=== PATIENT | female | born 1950 | race Caucasian/White ===

== ENCOUNTER 2016-05-25 11:53 | Emergency (ER) | payer MEDICARE, MEDICAID ==
[~2016-05-25] VITALS: Ht 162.6 cm; Wt 72.6 kg
[~2016-05-25 11:53] MED LIST: ACET500C4 PO; BENZ1TAB7 PO; CALC-223 PO; CHOL10002 PO; DIVA500T7 PO; DOCU-25 PO; FLUO-120 PO; LEVO75TA7 PO; QUET200T PO; REPA0.5T4 PO; RISP1TAB27 PO; RISP4TAB4 PO; TRAZ-144 PO
--- NOTE | 2016-05-25 12:35 | NUR ---
Dr juárez at bedside for exam.
--- NOTE | 2016-05-25 13:40 | NUR ---
Patient discharged to home in stable conditon. Written and verbal after care instructions given. Patient verbalizes understanding of instructions.
[2016-05-25 13:41] VITALS: BP 110/69
== END 2016-05-25 13:47 | disposition home or self-care (01) ==
LOC: ER 11:55
DX: S09.90XA Unspecified injury of head, initial encounter (principal); J45.909 Unspecified asthma, uncomplicated; F20.9 Schizophrenia, unspecified; E03.9 Hypothyroidism, unspecified; Z88.8 Allergy status to other drugs, medicaments and biological substances; R40.4 Transient alteration of awareness; W18.30XA Fall on same level, unspecified, initial encounter; Y93.89 Activity, other specified; Y99.8 Other external cause status; Y92.89 Other specified places as the place of occurrence of the external cause
CPT/HCPCS: 70450; 71010; 72125; A4663

== ENCOUNTER 2017-04-15 12:13 | Emergency (ER) | payer MEDICARE, MEDICAID ==
[~2017-04-15] VITALS: Ht 162.6 cm; Wt 77.1 kg
[~2017-04-15 12:13] MED LIST changes: +DOCU-141 PO; -DOCU-25 PO
[2017-04-15] MEDS ORDERED: ACETAMINOPHEN ES 500 MG TABLET PO ONE (14:00)
[2017-04-15] MEDS ORDERED: ACETAMINOPHEN ES 500 MG TABLET ONE (14:18)
[2017-04-15] MEDS ORDERED: ASPIRIN EC 325 MG TABLET.DR PO ONE (14:23)
[2017-04-15] MEDS ORDERED: ASPIRIN 325 MG TABLET PO ONE (14:30)
[2017-04-15 14:41] LABS: BASOPHILS % (AUTO) 0.8 % (0.0-2.0); EOSINOPHILS # (AUTO) 0.2 K/uL (0.0-0.7); EOSINOPHILS % (AUTO) 3.5 % (0.0-7.0); HEMATOCRIT 35.9 % (31.2-41.9); HEMOGLOBIN 11.9 g/dL (10.9-14.3); LYMPHOCYTES # (AUTO) 1.7 K/uL (20.0-40.0); LYMPHOCYTES % (AUTO) 33.8 % (20.5-51.5); MEAN CORPUSCULAR HEMOGLOBIN 29.2 uug (24.7-32.8); MEAN CORPUSCULAR HGB CONC 33 g/dL (32.3-35.6); MEAN CORPUSCULAR VOLUME 88.2 fL (75.5-95.3); MONOCYTES # (AUTO) 0.5 K/uL (2.0-10.0); MONOCYTES % (AUTO) 10.2 % (0.0-11.0); NEUTROPHILS # (AUTO) 2.7 K/uL (1.8-8.9); NEUTROPHILS % (AUTO) 51.7 % (38.5-71.5); PLATELET COUNT (AUTO) 199 K/uL (179-408); RED BLOOD CELL COUNT(AUTO) 4.07 MIL/uL (3.63-4.92); WHITE BLOOD COUNT (AUTO) 5.1 K/uL (3.8-11.8)
[2017-04-15 14:58] LABS: CREATININE 1.2 mg/dL (0.6-1.3); POTASSIUM 4.3 mmol/L (3.5-5.1)
[2017-04-15 15:12] LABS: BILIRUBIN,DIRECT 0.1 mg/dL (0.0-0.2); BILIRUBIN,TOTAL 0.3 mg/dL (0.2-1.0); TOTAL PROTEIN, SERUM 7.2 g/dL (6.4-8.2)
[2017-07-24] MEDS ORDERED: QUET100T PO (12:26)
[2017-07-24] MEDS ORDERED: FLUO20CA36 PO (12:26)
[2017-07-24] MEDS ORDERED: QUET300T2 PO (12:26)
[2017-07-24] MEDS ORDERED: LIDO40SO TP (12:26)
[2017-07-24] MEDS ORDERED: RISP3TAB5 PO (12:26)
[2017-07-24] MEDS ORDERED: DIVA500T2 PO (12:26)
[2017-07-24] MEDS ORDERED: RISP1TAB7 PO (12:26)
[2017-07-24] MEDS ORDERED: DIVA250T4 PO (12:26)
[2017-07-25] MEDS ORDERED: Levothyroxine Sodium PO (15:55)
[2017-07-25] MEDS ORDERED: GLIP5TAB13 PO (15:55)
[2017-07-25] MEDS ORDERED: Blood Sugar Diagnostic VI (15:55)
[2017-07-25] MEDS ORDERED: AMLO5TAB2 PO (15:55)
[2017-07-25] MEDS ORDERED: ACET325T53 PO (15:55)
[2017-07-25] MEDS ORDERED: ATOR20TA PO (15:55)
[2017-07-25] MEDS ORDERED: DOCU100C36 PO (15:55)
[2017-07-25] MEDS ORDERED: BISA10SU12 RC (16:13)
[2017-07-25] MEDS ORDERED: FLUO-120 PO (16:13)
== END 2017-04-15 16:20 | disposition home or self-care (01) ==
LOC: ER 12:13
DX: M79.602 Pain in left arm (principal); J45.909 Unspecified asthma, uncomplicated; E11.9 Type 2 diabetes mellitus without complications; E03.9 Hypothyroidism, unspecified; Z88.8 Allergy status to other drugs, medicaments and biological substances; Z79.891 Long term (current) use of opiate analgesic; Z79.899 Other long term (current) drug therapy
CPT/HCPCS: 36415; 71045; 80048; 80076; 83880; 84484; 85025; 85730; 93005; 99285; A4663; A9150; 70030-TC

== ENCOUNTER 2017-09-21 19:11 | Emergency (ER) | payer MEDICAID, MEDICARE ==
[~2017-09-21] VITALS: Ht 157.5 cm; Wt 68.9 kg
[~2017-09-21 19:11] MED LIST changes: +ACET325T53 PO; -ACET500C4 PO; +AMLO5TAB2 PO; +ATOR20TA PO; +Blood Sugar Diagnostic VI; -CALC-223 PO; +DIVA250T4 PO; +DIVA500T2 PO; -DIVA500T7 PO; -DOCU-141 PO; +DOCU100C36 PO; +GLIP5TAB13 PO; -LEVO75TA7 PO; +Levothyroxine Sodium PO; +QUET100T PO; -QUET200T PO; +QUET300T2 PO; -REPA0.5T4 PO; -RISP1TAB27 PO; +RISP3TAB5 PO; -RISP4TAB4 PO; -TRAZ-144 PO
--- NOTE | 2017-09-21 19:24 | NUR ---
Dr. Hunter at bedside for MSE.
[2017-09-21] MEDS ORDERED: TRAMADOL HCL 50 MG TABLET PO ONE (19:30)
[2017-09-21] MEDS ORDERED: TRAMADOL HCL 50 MG TABLET ONE (19:37)
--- NOTE | 2017-09-21 20:30 | NUR ---
Patient discharged to home in stable conditon. Written and verbal after care instructions given. Patient verbalizes understanding of instructions. Pt ambulated out of ER with walker, accompanied by caregiver, VSS, no acute signs of distress, all belongings taken.
[2017-09-21 21:39] VITALS: BP 149/96
== END 2017-09-21 20:30 | disposition home or self-care (01) ==
LOC: ER 19:14
DX: M25.551 Pain in right hip (principal); J45.909 Unspecified asthma, uncomplicated; E03.9 Hypothyroidism, unspecified; E78.5 Hyperlipidemia, unspecified; E11.9 Type 2 diabetes mellitus without complications; I10 Essential (primary) hypertension; Z88.8 Allergy status to other drugs, medicaments and biological substances
CPT/HCPCS: 73502; A4663

== ENCOUNTER 2017-11-15 16:15 | Emergency (ER) | payer MEDICARE, MEDICAID ==
[~2017-11-15] VITALS: Ht 157.5 cm; Wt 70.3 kg
[~2017-11-15 16:15] MED LIST changes: -AMLO5TAB2 PO; +AMLO5TAB7 PO
[2017-11-15 16:43] LABS: BASOPHILS # (AUTO) 0.1 K/uL (0.0-8.0); BASOPHILS % (AUTO) 0.7 % (0.0-2.0); EOSINOPHILS # (AUTO) 0.2 K/uL (0.0-0.7); EOSINOPHILS % (AUTO) 2.3 % (0.0-7.0); HEMATOCRIT 38.6 % (31.2-41.9); HEMOGLOBIN 12.9 g/dL (10.9-14.3); LYMPHOCYTES # (AUTO) 1.8 K/uL (20.0-40.0); LYMPHOCYTES % (AUTO) 22.9 % (20.5-51.5); MEAN CORPUSCULAR HEMOGLOBIN 29.9 uug (24.7-32.8); MEAN CORPUSCULAR HGB CONC 34 g/dL (32.3-35.6); MEAN CORPUSCULAR VOLUME 89.1 fL (75.5-95.3); MONOCYTES # (AUTO) 0.8 K/uL (2.0-10.0); MONOCYTES % (AUTO) 10.5 % (0.0-11.0); NEUTROPHILS # (AUTO) 4.9 K/uL (1.8-8.9); NEUTROPHILS % (AUTO) 63.6 % (38.5-71.5); PLATELET COUNT (AUTO) 192 K/uL (179-408); RED BLOOD CELL COUNT(AUTO) 4.33 MIL/uL (3.63-4.92); WHITE BLOOD COUNT (AUTO) 7.7 K/uL (3.8-11.8)
[2017-11-15 17:00] LABS: POTASSIUM 4.1 mmol/L (3.5-5.1)
[2017-11-15 17:08] LABS: BILIRUBIN,DIRECT 0.1 mg/dL (0.0-0.2); BILIRUBIN,TOTAL 0.4 mg/dL (0.2-1.0); TOTAL PROTEIN, SERUM 7.7 g/dL (6.4-8.2)
[2017-11-15] MEDS ORDERED: RISP1TAB7 PO (17:14)
[2017-11-15] MEDS ORDERED: DIVA500T2 PO (17:14)
[2017-11-15] MEDS ORDERED: RISP3TAB5 PO (17:14)
[2017-11-15] MEDS ORDERED: MIRA50TA PO (17:14)
[2017-11-15] MEDS ORDERED: BENZ1TAB7 PO (17:14)
[2017-11-15] MEDS ORDERED: LEVO75TA7 PO (17:14)
[2017-11-15] MEDS ORDERED: DIVA250T4 PO (17:14)
[2017-11-15] MEDS ORDERED: FLUO20CA36 PO (17:14)
[2017-11-15] MEDS ORDERED: CELE200C PO (17:14)
[2017-11-15] MEDS ORDERED: DOCU100C36 PO (17:14)
[2017-11-15] MEDS ORDERED: ACET-2605 PO (17:14)
[2017-11-15] MEDS ORDERED: QUET300T2 PO (17:14)
[2017-11-15] MEDS ORDERED: CHOL10005 PO (17:14)
[2017-11-15] MEDS ORDERED: REPA1TAB PO (17:14)
[2017-11-15] MEDS ORDERED: QUET100T PO (17:14)
[2017-11-15] MEDS ORDERED: SWABABLE VALVE TRANSFER SET EA MC ONE (17:47)
[2017-11-15] MEDS ORDERED: NORMAL SALINE FLUSH 10 ML DISP.SYRIN ONE (17:47)
[2017-11-15] MEDS ORDERED: IV NORMAL SALINE 250 ML IV ONE (17:48)
[2017-11-15] MEDS ORDERED: IOHEXOL 350 100 ML INFUS..BTL ONE (17:48)
--- NOTE | 2017-11-15 18:35 | NUR ---
all md orders completed, presently pt at ct scan.
--- NOTE | 2017-11-15 19:54 | NUR ---
Patient discharged to home in stable conditon. Written and verbal after care instructions given. Patient verbalizes understanding of instructions. Pt ambulated out of ER with steady gait, no acute signs of distress, VSS, all belongings taken IV site discontinued.
[2017-11-15 19:56] VITALS: BP 152/105
== END 2017-11-15 19:58 | disposition home or self-care (01) ==
LOC: ER 16:16
DX: R09.1 Pleurisy (principal); J45.909 Unspecified asthma, uncomplicated; E78.5 Hyperlipidemia, unspecified; E03.9 Hypothyroidism, unspecified; Z88.8 Allergy status to other drugs, medicaments and biological substances
CPT/HCPCS: 36415; 70030-TC; 71045; 71275; 85025; 85730; 93005; A4663; J3490; J7050; Q9967

== ENCOUNTER 2018-06-08 19:30 | Inpatient (IN) | payer MEDICARE, OTHER ==
[~2018-06-08] VITALS: Ht 157.5 cm; Wt 80.7 kg
[~2018-06-08 19:30] MED LIST changes: +ACET-2605 PO; -ACET325T53 PO; -AMLO5TAB7 PO; -ATOR20TA PO; -Blood Sugar Diagnostic VI; +CELE200C PO; -CHOL10002 PO; +CHOL10005 PO; -FLUO-120 PO; +FLUO20CA36 PO; -GLIP5TAB13 PO; +LEVO75TA7 PO; -Levothyroxine Sodium PO; +MIRA50TA PO; +REPA1TAB PO; +RISP1TAB7 PO
--- NOTE | 2018-06-08 19:53 | NUR ---
Dr. Carpenter at bedside for MSE.
--- NOTE | 2018-06-08 20:06 | NUR ---
Pt out of ER for CT.
[2018-06-08 20:11] LABS: BASOPHILS % (AUTO) 0.3 % (0.0-2.0); EOSINOPHILS % (AUTO) 0.7 % (0.0-7.0); HEMATOCRIT 33.4 % (31.2-41.9); HEMOGLOBIN 11.4 g/dL (10.9-14.3); LYMPHOCYTES # (AUTO) 0.8 K/uL (20.0-40.0); LYMPHOCYTES % (AUTO) 13.9 % (20.5-51.5); MEAN CORPUSCULAR HEMOGLOBIN 29.6 uug (24.7-32.8); MEAN CORPUSCULAR HGB CONC 34 g/dL (32.3-35.6); MEAN CORPUSCULAR VOLUME 87.1 fL (75.5-95.3); MONOCYTES # (AUTO) 0.9 K/uL (2.0-10.0); MONOCYTES % (AUTO) 14.2 % (0.0-11.0); NEUTROPHILS # (AUTO) 4.3 K/uL (1.8-8.9); NEUTROPHILS % (AUTO) 70.9 % (38.5-71.5); PLATELET COUNT (AUTO) 149 K/uL (179-408); RED BLOOD CELL COUNT(AUTO) 3.84 MIL/uL (3.63-4.92)
[2018-06-08 20:19] LABS: CREATININE 1.3 mg/dL (0.6-1.3); POTASSIUM 3.9 mmol/L (3.5-5.1)
--- NOTE | 2018-06-08 20:21 | NUR ---
Pt back to ER from CT.
[2018-06-08 20:25] LABS: BILIRUBIN,DIRECT 0.1 mg/dL (0.0-0.2); BILIRUBIN,TOTAL 0.3 mg/dL (0.2-1.0); TOTAL PROTEIN, SERUM 6.9 g/dL (6.4-8.2)
--- NOTE | 2018-06-08 21:23 | NUR ---
Called [facility] to page Dr. Torres Wallace.
[2018-06-08] MEDS ORDERED: LEVOFLOXACIN 750 MG/D5W 150 ML PIGGYBACK IV ONE (21:30)
[2018-06-08] MEDS ORDERED: LEVOFLOXACIN 750MG/D5W 150 ML IV ONE (21:43)
--- NOTE | 2018-06-08 21:53 | NUR ---
Dr. Carpenter on panel call with Dr. Torres Wallace. Pt accepted [facility], diagnosis: pneumonia.
[2018-06-08] MEDS ORDERED: MELO15TA13 PO (22:11)
[2018-06-08] MEDS ORDERED: D-ME118S12 PO (22:11)
--- NOTE | 2018-06-08 22:28 | NUR ---
Report given to Rikki STONE Medsurg.
--- NOTE | 2018-06-08 22:40 | NUR ---
RECEIVED PATIENT AT THIS TIME FROM ED. STABLE CONDITION. NO SIGNS OF DISTRESS. VITAL SIGNS TAKEN. PATIENT A/Ox2. o2 saturation 93-94% - placed on O2 2L NC. PICTURES TAKEN OF LEFT/RIGHT BUNION REDNESS. ID-BAND PLACED. IV-ACCESS PATENT, FLUSHES WELL. CONSISTENT COUGH PRESENT WITH NON-PRODUCTION. BED REST AT THIS TIME DUE TO UNSTEADY GAIT AND WEAKNESS. SAFETY MEASURES IMPLEMENTED. WILL CONTINUE TO MONITOR THROUGHOUT SHIFT.
[2018-06-08] MEDS: risperiDONE 2 MG TABLET PO SCH (23:00)
[2018-06-08] MEDS ORDERED: MIRALAX 17 GM POWD.PACK PO PRN (23:15)
[2018-06-08] MEDS ORDERED: CEFTRIAXONE 1 G in IV DEXTROSE 5% 50 ML IV SCH (23:15)
[2018-06-08] MEDS ORDERED: ACETAMINOPHEN 325 MG TABLET PO PRN (23:15)
[2018-06-08] MEDS ORDERED: DEXTROSE 50% 50 ML DISP.SYRIN IV PRN (23:15)
[2018-06-08] MEDS ORDERED: MORPHINE SULFATE 2 MG/1 ML DISP.SYRIN IV PRN (23:15)
[2018-06-08 23:16] VITALS: BP 148/65
[2018-06-08] MEDS: QUETIAPINE FUMARATE 100 MG TABLET PO SCH (23:45)
[2018-06-08] MEDS ORDERED: AZITHROMYCIN IV 250 MG in IV DEXTROSE 5% 250 ML IV ONE (23:45)
[2018-06-09] MEDS: GUAIFENESIN/CODEINE 5 ML LIQUID UDC PO PRN ×3 (00:07→15:37)
[2018-06-09] MEDS ORDERED: CEFTRIAXONE 1 G VIAL ONE (00:15)
[2018-06-09] MEDS ORDERED: AZITHROMYCIN 500 MG VIAL IV ONE (00:16)
--- NOTE | 2018-06-09 02:00 | NUR ---
HAND-OFF REPORT GIVEN TO BERTHA SEAY.
--- NOTE | 2018-06-09 03:36 | NUR ---
CLARIFIED ZITHROMAX ORDER BECAUSE PHARMACY NOTED "X1 ENTERED FOR NOW, CLARIFY QT PROLONGATION RISK- PT ON SEVERAL QT PROLONGING MEDS- LAST QTC= 483" SPOKE TO ON-CALL DR. SO AND RELAYED MESSAGED. SAID TO GIVEN THE DOSE AND DO EKG IN THE MORNING. WILL CONTINUE TO MONITOR.
--- NOTE | 2018-06-09 06:15 | NUR ---
PATIENT SLEPT WELL THROUGHOUT SHIFT. NOTED WITH NON-PRODUCTIVE COUGHING. PATIENT ABLE TO MAKE NEEDS KNOWN. NO SIGNS OF ACUTE DISTRESS. NO COMPLAINTS OF PAIN. PATIENT ON 2L NC. ALL MEDICATIONS GIVEN ORDERED. SAFETY MEASURES GIVEN.
[2018-06-09] MEDS: LEVOTHYROXINE SODIUM 75 MCG TABLET PO SCH (06:37)
[2018-06-09] MEDS: PANTOPRAZOLE SODIUM 40 MG TABLET.DR PO SCH (06:37)
[2018-06-09 06:39] VITALS: BP 109/62
[2018-06-09] MEDS: BLOOD SUGAR DIAGNOSTIC 1 EACH STRIP VI SCH ×4 (06:42→20:57)
[2018-06-09 06:51] LABS: BASOPHILS % (AUTO) 0.2 % (0.0-2.0); EOSINOPHILS % (AUTO) 0.3 % (0.0-7.0); HEMATOCRIT 32.4 % (31.2-41.9); LYMPHOCYTES # (AUTO) 1.2 K/uL (20.0-40.0); LYMPHOCYTES % (AUTO) 15.7 % (20.5-51.5); MEAN CORPUSCULAR HEMOGLOBIN 29.4 uug (24.7-32.8); MEAN CORPUSCULAR HGB CONC 34 g/dL (32.3-35.6); MEAN CORPUSCULAR VOLUME 86.5 fL (75.5-95.3); MONOCYTES # (AUTO) 1.4 K/uL (2.0-10.0); MONOCYTES % (AUTO) 18.7 % (0.0-11.0); NEUTROPHILS # (AUTO) 4.9 K/uL (1.8-8.9); NEUTROPHILS % (AUTO) 65.1 % (38.5-71.5); PLATELET COUNT (AUTO) 147 K/uL (179-408); RED BLOOD CELL COUNT(AUTO) 3.74 MIL/uL (3.63-4.92); WHITE BLOOD COUNT (AUTO) 7.5 K/uL (3.8-11.8)
--- NOTE | 2018-06-09 07:05 | NUR ---
RECEIVED PATIENT LAYING IN BED ALERT AND ORIENTED X3, ABLE TO MAKE NEEDS KNOWN. NO S/S OF ACUTE DISTRESS NOTED AT THIS TIME. NO C/O PAIN AT THIS TIME. PATIENT IS ON 2L NASAL CANULA. PROVIDE SAFETY AT ALL TIMES. CONTINUE TO MONITOR AND CONTINUE TREATMENT PLAN.
[2018-06-09 07:16] LABS: THYROID STIMULATING HORMONE 3.492 mIU/mL (0.358-3.740)
[2018-06-09 07:18] LABS: BILIRUBIN,TOTAL 0.2 mg/dL (0.2-1.0); CREATININE 1.2 mg/dL (0.6-1.3); MAGNESIUM 1.7 mg/dL (1.8-2.4); PHOSPHOROUS 2.2 mg/dL (2.5-4.9); POTASSIUM 4.2 mmol/L (3.5-5.1); TOTAL PROTEIN, SERUM 6.5 g/dL (6.4-8.2)
[2018-06-09] MEDS ORDERED: Medication Not On Formulary EA (Mirabegron (Myrbetriq) 50 MG) PO SCH (09:00)
[2018-06-09] MEDS ORDERED: MELOXICAM 7.5 MG TABLET PO SCH (09:00)
[2018-06-09] MEDS ORDERED: Medication Not On Formulary EA (Meloxicam (Mobic) 15 MG) PO SCH (09:00)
[2018-06-09] MEDS: REPAGLINIDE 1 MG TABLET PO SCH ×2 (09:28→16:44)
[2018-06-09] MEDS: QUETIAPINE FUMARATE 25 MG TABLET PO SCH (09:29)
[2018-06-09] MEDS: FLUOXETINE HCL 20 MG CAPSULE PO SCH (09:29)
[2018-06-09] MEDS: CHOLECALCIFEROL 1,000 UNIT TABLET PO SCH (09:29)
[2018-06-09] MEDS: BENZTROPINE MESYLATE 1 MG TABLET PO SCH ×2 (09:29→16:44)
[2018-06-09] MEDS: DIVALPROEX 250 MG TABLET.DR PO SCH (09:29)
[2018-06-09] MEDS: DOCUSATE SODIUM 100 MG CAPSULE PO SCH ×2 (09:29→16:44)
[2018-06-09] MEDS: risperiDONE 2 MG TABLET PO SCH ×2 (11:18→23:19)
[2018-06-09 11:33] VITALS: BP 134/62
[2018-06-09 12:12] LABS: BAND % (MANUAL) 21 % (0-10); EOSINOPHILS % (MANUAL) 1 % (0-8); LYMPHOCYTES % (MANUAL) 16 % (20-40); MONOCYTES % (MANUAL) 17 % (2-10); NEUTROPHILS % (MANUAL) 45 % (42-75)
[2018-06-09] MEDS: INSULIN REGULAR, HUMAN 300 UNIT/3 ML VIAL SQ PRN ×2 (12:16→20:58)
[2018-06-09] MEDS: MAGNESIUM SULFATE/D5W 100 ML IV SCH ×2 (14:56→16:04)
[2018-06-09 15:23] VITALS: BP 125/72
[2018-06-09] MEDS ORDERED: NEUTRA PHOS PACKET PO ONE (15:30)
[2018-06-09] MEDS ORDERED: POLYVINYL ALCOHOL OPHT DROPS 15 ML BOTTLE EACHEYE PRN (16:15)
--- NOTE | 2018-06-09 18:24 | NUR ---
PATIENT IN BED WITH HEAD OF BED ELEVATED , WATCHING TV. ALERT AND ORIENTED X3, ABLE TO MAKE NEEDS KNOWN. NO S/S OF ACUTE DISTRESS NOTED AT THIS TIME. NO C/O PAIN AT THIS TIME. PATIENT IS ON 2L NASAL CANULA. PATIENT COMPLIANT WITH HER MEDICATION PATIENT ATE HER DINNER. PROVIDE SAFETY AT ALL TIMES. CONTINUE TO MONITOR AND CONTINUE TREATMENT PLAN.
--- NOTE | 2018-06-09 19:40 | NUR ---
RECEIVED PATIENT AWAKE AND ALERT IN BED IN HIGH BORGES POSITION. PT ABLE TO MAKE NEEDS KNOWN. NO SIGNS OF ACUTE DISTRESS NOTED. NO COMPLAINTS OF PAIN OR SOB, PT ON 2L NC SATURATING AT 94%. HEPLOCK ON THE LEFT FOREARM IS INTACT AND PATENT. PT NOTED WITH NON-PRODUCTIVE COUGHING. PATIENT COMPLAINS OF SORE THROAT, PRN CEPACOL ORDERED. SAFETY MEASURES INITIATED. BED IS LOW AND LOCKED, CALL LIGHT WITHIN REACH. WILL CONTINUE TO MONITOR.
[2018-06-09 20:16] VITALS: BP 112/63
[2018-06-09] MEDS: DIVALPROEX 500 MG TABLET.DR PO SCH (20:42)
[2018-06-09] MEDS: QUETIAPINE FUMARATE 100 MG TABLET PO SCH (20:42)
[2018-06-09] MEDS: OXYBUTYNIN CHLORIDE 5 MG TABLET PO SCH (20:42)
[2018-06-09] MEDS: BENZOCAINE/MENTH/CETYLPYRD LOZENGE MM PRN (20:42)
[2018-06-09] MEDS: AZITHROMYCIN IV 250 MG in IV DEXTROSE 5% 250 ML IV SCH (20:48)
[2018-06-09] MEDS ORDERED: PIPERACILLIN/TAZOBACTAM/D5W 100 ML IV ONE (22:51)
[2018-06-09] MEDS: PIPERACILLIN/TAZOBACTAM/D5W 3.375 G in PREMIXED 1 EACH IV SCH (23:06)
[2018-06-10] MEDS: GUAIFENESIN/CODEINE 5 ML LIQUID UDC PO PRN ×3 (04:26→19:35)
[2018-06-10] MEDS: PIPERACILLIN/TAZOBACTAM/D5W 3.375 G in PREMIXED 1 EACH IV SCH ×4 (05:58→22:18)
--- NOTE | 2018-06-10 06:07 | NUR ---
PATIENT SLEPT WELL THROUGHOUT SHIFT. PRN ROBITUSSIN AND CEPACOL HELPED. ID CAME AND EXAMINED PATIENT. ANTIBIOTIC ROCEPHIN CHANGED TO ZOSYN Q8H, X2 DOSES ADMINISTERED AND TOLERATED WELL. NO COMPLAINTS OF PAIN OR SOB. ALL OTHER MEDICATIONS GIVEN ORDERED. SAFETY MEASURES GIVEN.
[2018-06-10] MEDS: PANTOPRAZOLE SODIUM 40 MG TABLET.DR PO SCH (06:29)
[2018-06-10] MEDS: LEVOTHYROXINE SODIUM 75 MCG TABLET PO SCH (06:30)
[2018-06-10] MEDS: BLOOD SUGAR DIAGNOSTIC 1 EACH STRIP VI SCH ×4 (06:35→20:43)
[2018-06-10] MEDS: BENZOCAINE/MENTH/CETYLPYRD LOZENGE MM PRN (06:37)
[2018-06-10 06:47] LABS: BASOPHILS % (AUTO) 0.2 % (0.0-2.0); EOSINOPHILS # (AUTO) 0.1 K/uL (0.0-0.7); EOSINOPHILS % (AUTO) 0.7 % (0.0-7.0); HEMATOCRIT 33.5 % (31.2-41.9); HEMOGLOBIN 11.1 g/dL (10.9-14.3); LYMPHOCYTES # (AUTO) 1.5 K/uL (20.0-40.0); LYMPHOCYTES % (AUTO) 15.5 % (20.5-51.5); MEAN CORPUSCULAR HGB CONC 33 g/dL (32.3-35.6); MEAN CORPUSCULAR VOLUME 87.4 fL (75.5-95.3); MONOCYTES # (AUTO) 1.1 K/uL (2.0-10.0); MONOCYTES % (AUTO) 11.6 % (0.0-11.0); NEUTROPHILS # (AUTO) 6.9 K/uL (1.8-8.9); PLATELET COUNT (AUTO) 190 K/uL (179-408); RED BLOOD CELL COUNT(AUTO) 3.83 MIL/uL (3.63-4.92); WHITE BLOOD COUNT (AUTO) 9.5 K/uL (3.8-11.8)
[2018-06-10 06:54] LABS: CREATININE 1.8 mg/dL (0.6-1.3); MAGNESIUM 2.8 mg/dL (1.8-2.4); PHOSPHOROUS 5.2 mg/dL (2.5-4.9); POTASSIUM 3.9 mmol/L (3.5-5.1)
--- NOTE | 2018-06-10 07:15 | NUR ---
Received patient in bed laying comfortably, alert and oriented x2-3, no s/s sob noted at this time, no c/o pain at this time, IV intact and patent, bed in low position, side rails up x2 , bed alarm on. will continue to monitor and provide safety at all time. continue treatment plan.
[2018-06-10 07:21] LABS: BAND % (MANUAL) 11 % (0-10); EOSINOPHILS % (MANUAL) 1 % (0-8); LYMPHOCYTES % (MANUAL) 18 % (20-40); MONOCYTES % (MANUAL) 13 % (2-10); NEUTROPHILS % (MANUAL) 57 % (42-75)
[2018-06-10] MEDS: ALBUTEROL SULFATE 1.25 MG/3 ML NEBU NEB PRN ×2 (07:44→19:16)
[2018-06-10] MEDS: INSULIN REGULAR, HUMAN 300 UNIT/3 ML VIAL SQ PRN ×2 (08:47→12:46)
[2018-06-10] MEDS: DOCUSATE SODIUM 100 MG CAPSULE PO SCH ×2 (08:53→17:16)
[2018-06-10] MEDS: REPAGLINIDE 1 MG TABLET PO SCH ×2 (08:53→17:15)
[2018-06-10] MEDS: DIVALPROEX 250 MG TABLET.DR PO SCH (08:53)
[2018-06-10] MEDS: QUETIAPINE FUMARATE 25 MG TABLET PO SCH (08:55)
[2018-06-10] MEDS: CHOLECALCIFEROL 1,000 UNIT TABLET PO SCH (08:56)
[2018-06-10] MEDS: BENZTROPINE MESYLATE 1 MG TABLET PO SCH ×2 (08:56→17:16)
[2018-06-10] MEDS: FLUOXETINE HCL 20 MG CAPSULE PO SCH (08:56)
[2018-06-10] MEDS: OXYBUTYNIN CHLORIDE 5 MG TABLET PO SCH ×2 (08:56→20:41)
[2018-06-10] MEDS ORDERED: MELOXICAM 7.5 MG TABLET PO SCH (09:00)
[2018-06-10] MEDS ORDERED: IV NS 1000 ML 1,000 ML IV PRN (09:30)
[2018-06-10 11:29] VITALS: BP 108/65
[2018-06-10] MEDS: risperiDONE 2 MG TABLET PO SCH ×2 (11:39→23:00)
[2018-06-10 14:47] VITALS: BP 110/72
--- NOTE | 2018-06-10 18:59 | NUR ---
patient in bed laying comfortably, alert and oriented x2-3, no s/s sob noted at this time, no c/o pain at this time, IV intact and patent, bed in low position, side rails up x2 , bed alarm on. will continue to monitor and provide safety at all time. continue treatment plan with night nurse.
--- NOTE | 2018-06-10 19:35 | NUR ---
PATIENT AWAKE IN BED. COUGHING NON-STOP. PATIENT GIVEN ROBITUSSIN 10ML PO PRN FOR COUGH. DENIES PAIN OR DISCOMFORT. ON O2 2L NC SATING WELL. NO RESP. DISTRESS NOTED. DENIES SOB. PATIENT WAS JUST GIVEN BREATHING TX PER BRUSH CLEARER SURVEYING. BED ALARM ON. WILL CONTINUE TO MONITOR AND ASSESS.
[2018-06-10 20:00] VITALS: BP 124/66
[2018-06-10] MEDS: CULTURELLE CAPSULE PO SCH (20:41)
[2018-06-10] MEDS: DIVALPROEX 500 MG TABLET.DR PO SCH (20:41)
[2018-06-10] MEDS: QUETIAPINE FUMARATE 100 MG TABLET PO SCH (20:42)
[2018-06-10] MEDS: AZITHROMYCIN IV 250 MG in IV DEXTROSE 5% 250 ML IV SCH (20:46)
[2018-06-11 05:17] VITALS: BP 153/63
[2018-06-11] MEDS: PIPERACILLIN/TAZOBACTAM/D5W 3.375 G in PREMIXED 1 EACH IV SCH ×3 (05:42→23:30)
[2018-06-11] MEDS: PANTOPRAZOLE SODIUM 40 MG TABLET.DR PO SCH (06:06)
--- NOTE | 2018-06-11 06:20 | NUR ---
PATIENT ASLEEP IN BED. EASILY AROUSABLE. SLEPT WELL. DENIES PAIN. CALL LIGHT IN REACH. BED ALARM ON. WILL CONTINUE TO MONITOR AND ASSESS.
[2018-06-11] MEDS: LEVOTHYROXINE SODIUM 75 MCG TABLET PO SCH (06:41)
[2018-06-11] MEDS: BLOOD SUGAR DIAGNOSTIC 1 EACH STRIP VI SCH ×4 (06:41→22:17)
[2018-06-11 07:17] LABS: BASOPHILS % (AUTO) 0.4 % (0.0-2.0); EOSINOPHILS # (AUTO) 0.1 K/uL (0.0-0.7); EOSINOPHILS % (AUTO) 1.9 % (0.0-7.0); HEMATOCRIT 31.1 % (31.2-41.9); HEMOGLOBIN 10.3 g/dL (10.9-14.3); LYMPHOCYTES # (AUTO) 1.1 K/uL (20.0-40.0); LYMPHOCYTES % (AUTO) 15.2 % (20.5-51.5); MEAN CORPUSCULAR HGB CONC 33 g/dL (32.3-35.6); MEAN CORPUSCULAR VOLUME 87.3 fL (75.5-95.3); MONOCYTES # (AUTO) 0.9 K/uL (2.0-10.0); MONOCYTES % (AUTO) 12.4 % (0.0-11.0); NEUTROPHILS # (AUTO) 5.1 K/uL (1.8-8.9); NEUTROPHILS % (AUTO) 70.1 % (38.5-71.5); PLATELET COUNT (AUTO) 208 K/uL (179-408); RED BLOOD CELL COUNT(AUTO) 3.57 MIL/uL (3.63-4.92); WHITE BLOOD COUNT (AUTO) 7.3 K/uL (3.8-11.8)
[2018-06-11 07:30] LABS: BILIRUBIN,TOTAL 0.3 mg/dL (0.2-1.0); MAGNESIUM 2.8 mg/dL (1.8-2.4); PHOSPHOROUS 3.8 mg/dL (2.5-4.9); POTASSIUM 4.1 mmol/L (3.5-5.1); TOTAL PROTEIN, SERUM 6.5 g/dL (6.4-8.2)
--- NOTE | 2018-06-11 07:30 | NUR ---
Awake, alert, oriented x 2, forgetful. O2 at 2L/NC. With intermittent cough. IVF infusing.
[2018-06-11 07:39] LABS: BAND % (MANUAL) 4 % (0-10); EOSINOPHILS % (MANUAL) 1 % (0-8); LYMPHOCYTES % (MANUAL) 20 % (20-40); MONOCYTES % (MANUAL) 13 % (2-10); NEUTROPHILS % (MANUAL) 62 % (42-75)
[2018-06-11] MEDS: DOCUSATE SODIUM 100 MG CAPSULE PO SCH ×2 (09:52→17:11)
[2018-06-11] MEDS: BENZTROPINE MESYLATE 1 MG TABLET PO SCH ×2 (09:52→17:10)
[2018-06-11] MEDS: CULTURELLE CAPSULE PO SCH ×2 (09:53→20:54)
[2018-06-11] MEDS: DIVALPROEX 250 MG TABLET.DR PO SCH (09:53)
[2018-06-11] MEDS: OXYBUTYNIN CHLORIDE 5 MG TABLET PO SCH ×2 (09:53→20:54)
[2018-06-11] MEDS: CHOLECALCIFEROL 1,000 UNIT TABLET PO SCH (09:54)
[2018-06-11] MEDS: QUETIAPINE FUMARATE 25 MG TABLET PO SCH (09:54)
[2018-06-11] MEDS: FLUOXETINE HCL 20 MG CAPSULE PO SCH (09:54)
[2018-06-11] MEDS: REPAGLINIDE 1 MG TABLET PO SCH ×2 (09:55→17:10)
--- NOTE | 2018-06-11 09:55 | NUR ---
With bouts of cough. Robitussin AC given as ordered, with relief
[2018-06-11] MEDS: GUAIFENESIN/CODEINE 5 ML LIQUID UDC PO PRN ×2 (09:59→23:26)
--- NOTE | 2018-06-11 10:00 | NUR ---
Assisted out of bed by PT ambulated in the hallway with FWW.
[2018-06-11 11:31] VITALS: BP 114/48
[2018-06-11] MEDS: risperiDONE 2 MG TABLET PO SCH ×2 (12:23→23:26)
[2018-06-11] MEDS: INSULIN REGULAR, HUMAN 300 UNIT/3 ML VIAL SQ PRN ×2 (12:26→22:13)
[2018-06-11] MEDS ORDERED: BISACODYL 10 MG SUPP.RECT RC PRN (12:45)
[2018-06-11] MEDS ORDERED: BISACODYL 10 MG SUPP.RECT RC ONE (12:45)
--- NOTE | 2018-06-11 13:52 | NUR ---
No BM today. X ray showed stool. Dulcolax suppository given rectally.
[2018-06-11 15:06] VITALS: BP 131/56
--- NOTE | 2018-06-11 18:55 | NUR ---
Still with no BM. Passing gas. Denies pain. Tolerating diet. Endorsed for further care and follow up
--- NOTE | 2018-06-11 19:40 | NUR ---
RECEIVED PATIENT AWAKE AND ALERT WITH FAMILY AT BEDSIDE NO SIGNS OF ACUTE DISTRESS NOTED. NO COMPLAINTS OF PAIN OR SOB. IVF RUNNING ON THE RIGHT FOREARM. SAFETY MEASURES INITIATED. BED IS LOW AND LOCKED, CALL LIGHT IS WITHIN REACH. WILL CONTINUE TO MONITOR.
[2018-06-11 20:00] VITALS: BP 105/53
[2018-06-11] MEDS: QUETIAPINE FUMARATE 100 MG TABLET PO SCH (20:54)
[2018-06-11] MEDS: DIVALPROEX 500 MG TABLET.DR PO SCH (20:54)
[2018-06-11] MEDS: AZITHROMYCIN IV 250 MG in IV DEXTROSE 5% 250 ML IV SCH (20:59)
--- NOTE | 2018-06-11 22:44 | NUR ---
ID ORDERED TAP WATER ENEMA ONCE PRN DUE TO X-RAY SHOWING LARGE AMOUNTS OF STOOL. EXPLAINED TO PATIENT, BUT PATIENT WANTED TO TRY TO TAKE MIRALAX. HOWEVER, BEFORE I COULD GIVE MIRALAX, PT HAD 2 LARGE BM. WILL CONTINUE TO MONITOR.
[2018-06-12 05:09] VITALS: BP 125/70
--- NOTE | 2018-06-12 05:52 | NUR ---
Patient slept well throughout shift. IV on the right forearm was accidently pulled out. IV on the left forearm became infiltrated. Inserted new IV on the right hand #20. All medication given as ordered and tolerated well. No signs of acute distress noted. No complaints of pain or SOB. All needs were met. Safety measures given. Will endorse continuity of care to next shift.
[2018-06-12] MEDS: LEVOTHYROXINE SODIUM 75 MCG TABLET PO SCH (06:30)
[2018-06-12] MEDS: PANTOPRAZOLE SODIUM 40 MG TABLET.DR PO SCH (06:30)
[2018-06-12] MEDS: BLOOD SUGAR DIAGNOSTIC 1 EACH STRIP VI SCH ×3 (06:38→17:43)
[2018-06-12] MEDS: PIPERACILLIN/TAZOBACTAM/D5W 3.375 G in PREMIXED 1 EACH IV SCH ×2 (06:38→13:33)
[2018-06-12] MEDS: GUAIFENESIN/CODEINE 5 ML LIQUID UDC PO PRN (06:40)
[2018-06-12] MEDS: QUETIAPINE FUMARATE 25 MG TABLET PO SCH (09:35)
[2018-06-12] MEDS: DIVALPROEX 250 MG TABLET.DR PO SCH (09:35)
[2018-06-12] MEDS: CULTURELLE CAPSULE PO SCH (09:36)
[2018-06-12] MEDS: CHOLECALCIFEROL 1,000 UNIT TABLET PO SCH (09:36)
[2018-06-12] MEDS: DOCUSATE SODIUM 100 MG CAPSULE PO SCH ×2 (09:36→17:43)
[2018-06-12] MEDS: BENZTROPINE MESYLATE 1 MG TABLET PO SCH ×2 (09:36→17:43)
[2018-06-12] MEDS: FLUOXETINE HCL 20 MG CAPSULE PO SCH (09:36)
[2018-06-12] MEDS: OXYBUTYNIN CHLORIDE 5 MG TABLET PO SCH (09:36)
[2018-06-12] MEDS: REPAGLINIDE 1 MG TABLET PO SCH ×2 (09:38→17:43)
[2018-06-12] MEDS: risperiDONE 2 MG TABLET PO SCH (11:00)
[2018-06-12 11:05] VITALS: BP 112/52
[2018-06-12] MEDS ORDERED: AMOX-430 PO (12:57)
[2018-06-12 15:00] VITALS: BP 113/57
[2018-06-12 15:17] LABS: CREATININE 0.9 mg/dL (0.6-1.3); POTASSIUM 4.2 mmol/L (3.5-5.1)
[2018-06-12 15:18] LABS: BASOPHILS % (AUTO) 0.4 % (0.0-2.0); EOSINOPHILS # (AUTO) 0.1 K/uL (0.0-0.7); EOSINOPHILS % (AUTO) 1.7 % (0.0-7.0); HEMATOCRIT 32.9 % (31.2-41.9); LYMPHOCYTES # (AUTO) 1.4 K/uL (20.0-40.0); LYMPHOCYTES % (AUTO) 19.6 % (20.5-51.5); MEAN CORPUSCULAR HEMOGLOBIN 29.2 uug (24.7-32.8); MEAN CORPUSCULAR HGB CONC 34 g/dL (32.3-35.6); MEAN CORPUSCULAR VOLUME 87.4 fL (75.5-95.3); MONOCYTES # (AUTO) 1.3 K/uL (2.0-10.0); MONOCYTES % (AUTO) 17.7 % (0.0-11.0); NEUTROPHILS # (AUTO) 4.3 K/uL (1.8-8.9); NEUTROPHILS % (AUTO) 60.6 % (38.5-71.5); PLATELET COUNT (AUTO) 261 K/uL (179-408); RED BLOOD CELL COUNT(AUTO) 3.77 MIL/uL (3.63-4.92); WHITE BLOOD COUNT (AUTO) 7.1 K/uL (3.8-11.8)
[2018-06-12 16:22] LABS: BAND % (MANUAL) 11 % (0-10); EOSINOPHILS % (MANUAL) 1 % (0-8); LYMPHOCYTES % (MANUAL) 20 % (20-40); MONOCYTES % (MANUAL) 14 % (2-10); NEUTROPHILS % (MANUAL) 52 % (42-75)
[2018-06-12 16:23] LABS: METAMYELOCYTES % 2 % (0-1)
[2018-06-12] MEDS: INSULIN REGULAR, HUMAN 300 UNIT/3 ML VIAL SQ PRN (17:48)
--- NOTE | 2018-06-12 19:00 | NUR ---
Discharge Note patient remained cooperative with meds and care. no distress noted or reported. educated on discharge and follow up care. patient to be discharged back to her assisted living, Pharmacy educated patient on discharge meds. patient to follow up with PCP within one week, IV line removed. ID band removed. questions and concerns addressed, Belongings returned and accounted for. discharge in stable condition. medically cleared. discharged via facility transport
[2018-06-12] MEDS ORDERED: AZITHROMYCIN 250 MG TABLET PO SCH (21:00)
== END 2018-06-12 19:00 | DRG 871 ==
LOC: ER 19:31 → MEDSURG3 22:34
PROVIDERS: ADMIT Internal Medicine; ATTEND Internal Medicine
DX: A41.9 Sepsis, unspecified organism (principal); N17.0 Acute kidney failure with tubular necrosis; J15.9 Unspecified bacterial pneumonia; E44.0 Moderate protein-calorie malnutrition; E87.1 Hypo-osmolality and hyponatremia; D68.59 Other primary thrombophilia; K56.7 Ileus, unspecified; Z87.01 Personal history of pneumonia (recurrent); E66.9 Obesity, unspecified; F25.9 Schizoaffective disorder, unspecified; F70 Mild intellectual disabilities; K59.00 Constipation, unspecified; E86.0 Dehydration; E03.9 Hypothyroidism, unspecified; N32.81 Overactive bladder; Z79.890 Hormone replacement therapy; Z68.32 Body mass index [BMI] 32.0-32.9, adult; J45.909 Unspecified asthma, uncomplicated; Z74.09 Other reduced mobility; R13.10 Dysphagia, unspecified; T39.395A Adverse effect of other nonsteroidal anti-inflammatory drugs [NSAID], initial encounter; Y92.099 Unspecified place in other non-institutional residence as the place of occurrence of the external cause; D25.2 Subserosal leiomyoma of uterus; F32.9 Major depressive disorder, single episode, unspecified; E11.9 Type 2 diabetes mellitus without complications; R53.1 Weakness; R94.31 Abnormal electrocardiogram [ECG] [EKG]
CPT/HCPCS: 36415; 70030-TC; 71045; 74018; 76770; 80164; 82378; 83690; 83735; 84100; 84443; 85025; 87400; 92526; 92610; 93005; 94640; 97110; 97116; 97530; A4663; G0378; J0456; J0696; J1815; J1956; J2543; J3475; J3490; J7030; J7050; J7060

== ENCOUNTER 2018-07-30 15:00 | Emergency (ER) | payer MEDICARE, MEDICAID ==
[~2018-07-30] VITALS: Ht 167.6 cm; Wt 77.1 kg
[~2018-07-30 15:00] MED LIST changes: +AMOX-430 PO; -CELE200C PO; +D-ME118S12 PO; +MELO15TA13 PO; -RISP1TAB7 PO
--- NOTE | 2018-07-30 15:30 | NUR ---
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 pt was seen at [facility] er yesterday. extensive imaging done at [facility] per d/c instruction at [facility]. hematome on the fore head, sutured lac on the fore head, bilateral periorbital hematoma, some small open skin above the eyes with minimall blood oozing out aging while cleaning. right fore arm sutured lac.
--- NOTE | 2018-07-30 15:33 | NUR ---
Patient discharged to home in stable conditon. Written and verbal after care instructions given. Patient verbalizes understanding of instructions.pt accompanied to acute care assistant Leilani Booth from [facility].
[2018-07-30 15:34] VITALS: BP 121/59
== END 2018-07-30 15:42 | disposition home or self-care (01) ==
LOC: ER 15:00
DX: H11.31 Conjunctival hemorrhage, right eye (principal); S02.2XXD Fracture of nasal bones, subsequent encounter for fracture with routine healing; S01.81XD Laceration without foreign body of other part of head, subsequent encounter; J45.909 Unspecified asthma, uncomplicated; E03.9 Hypothyroidism, unspecified; Z88.8 Allergy status to other drugs, medicaments and biological substances; Z79.899 Other long term (current) drug therapy; W18.39XD Other fall on same level, subsequent encounter
CPT/HCPCS: A4663

== ENCOUNTER 2019-05-03 16:35 | Inpatient (IN) | payer MEDICARE, OTHER ==
[~2019-05-03] VITALS: Ht 165.1 cm; Wt 70.3 kg
[2019-05-03] MEDS ORDERED: IV NORMAL SALINE 1000 ML BAG IV ONE (18:00)
[2019-05-03] MEDS ORDERED: CEFTRIAXONE 1 G in IV DEXTROSE 5% 50 ML IV ONE (18:00)
[2019-05-03] MEDS ORDERED: AZITHROMYCIN IV 500 MG in IV DEXTROSE 5% 250 ML IV ONE (18:00)
[2019-05-03] MEDS ORDERED: CEFTRIAXONE /D5W 50ML IVPB **ER PYXIS IV ONE (18:14)
[2019-05-03 18:15] LABS: BASOPHILS % (AUTO) 0.8 % (0.0-2.0); EOSINOPHILS # (AUTO) 0.1 K/uL (0.0-0.7); HEMATOCRIT 34.9 % (31.2-41.9); HEMOGLOBIN 11.6 g/dL (10.9-14.3); LYMPHOCYTES % (AUTO) 25.2 % (20.5-51.5); MEAN CORPUSCULAR HEMOGLOBIN 29.3 uug (24.7-32.8); MEAN CORPUSCULAR HGB CONC 33 g/dL (32.3-35.6); MEAN CORPUSCULAR VOLUME 88.4 fL (75.5-95.3); MONOCYTES # (AUTO) 0.8 K/uL (2.0-10.0); MONOCYTES % (AUTO) 20.4 % (0.0-11.0); NEUTROPHILS # (AUTO) 2.1 K/uL (1.8-8.9); NEUTROPHILS % (AUTO) 51.6 % (38.5-71.5); PLATELET COUNT (AUTO) 184 K/uL (179-408); RED BLOOD CELL COUNT(AUTO) 3.96 MIL/uL (3.63-4.92); WHITE BLOOD COUNT (AUTO) 4.1 K/uL (3.8-11.8)
[2019-05-03] MEDS ORDERED: AZITHROMYCIN 500MG/ D5W 250ML IVPB **ER PYXIS ONLY IV ONE (18:15)
[2019-05-03 18:23] LABS: CREATININE 1.1 mg/dL (0.6-1.3); POTASSIUM 4.1 mmol/L (3.5-5.1)
[2019-05-03 18:36] LABS: BILIRUBIN,DIRECT 0.1 mg/dL (0.0-0.2); BILIRUBIN,TOTAL 0.2 mg/dL (0.2-1.0); TOTAL PROTEIN, SERUM 6.8 g/dL (6.4-8.2)
[2019-05-03 18:38] LABS: EOSINOPHILS % (MANUAL) 3 % (0-8); LYMPHOCYTES % (MANUAL) 22 % (20-40); MONOCYTES % (MANUAL) 21 % (2-10); NEUTROPHILS % (MANUAL) 54 % (42-75)
[2019-05-03] MEDS ORDERED: DEXAMETHASONE SOD PHOSPHATE 4 MG INJ IV ONE (19:00)
--- NOTE | 2019-05-03 19:12 | NUR ---
contacted Dr. Gutiérrez for admission notification as he is her primary MD. Patient given 1 of 2.2 bags of IV fluids. Patient tolerating well.
--- NOTE | 2019-05-03 19:18 | NUR ---
SBAR report given to Frandy.
[2019-05-03] MEDS ORDERED: DEXAMETHASONE SOD PHOSPHATE 4 MG INJ ONE (19:27)
[2019-05-03] MEDS ORDERED: HYDROCODONE/APAP 5-325MG TABLET PO PRN (20:45)
--- NOTE | 2019-05-03 20:55 | NUR ---
Pt. admitted to TELE , under care of Dr. CAMARENA Belongs List completed,
[2019-05-03 21:00] VITALS: BP 167/91
--- NOTE | 2019-05-03 21:10 | NUR ---
BHAVIN (SOLE CEMENTER) [facility] [phone]
[2019-05-03 21:19] LABS: *BILIRUBIN,URIN NEGATIVE (NEGATIVE); *BLOOD, URINE 1+ (NEGATIVE); *CLARITY,URINE CLEAR (CLEAR); *COLOR,URINE YELLOW (YELLOW); *KETONES,URINE NEGATIVE (NEGATIVE); *UROBILINOGEN,URINE 0.2 E.U./dl (NORMAL); LEUKOCYTE ESTERASE ,URINE TRACE (NEGATIVE); NITRITE, URINE NEGATIVE (NEGATIVE); UGLUCOSE NEGATIVE (NEGATIVE)
[2019-05-03 21:25] LABS: BACTERIA,URINE 1+ /HPF (NONE SEEN); SQUAMOUS EPITHELIAL CELL,UR FEW /HPF (NONE SEEN); WBC,URINE 0-3 /HPF (0-3)
--- NOTE | 2019-05-03 21:30 | NUR ---
ADMITTED PATIENT ON TELE FLOOR UNDER THE CARE OF DR. ARAUJO WITH DIAGNOSIS OF SEPSIS/PNA. PATIENT ON DROPLET PRECAUTION ORDERED. PATIENT ALERT ORIENTED, HAS NON PRODUCTIVE COUGH, MD WAS NOTIFIED. PATIENT ON TELE MONITOR SINUS RHYTHM, CONT TO MONITOR.
[2019-05-03] MEDS ORDERED: VANCOMYCIN IV 1 G in PREMIXED 0 EACH IV ONE (22:00)
[2019-05-03] MEDS: QUETIAPINE FUMARATE 200 MG TABLET PO SCH (22:12)
[2019-05-03] MEDS: risperiDONE 1 MG TABLET PO SCH (22:12)
[2019-05-03] MEDS: DIVALPROEX 500 MG TABLET.DR PO SCH (22:12)
[2019-05-03] MEDS: IV 1/2NS 1000 ML 1,000 ML IV PRN (22:15)
[2019-05-03] MEDS ORDERED: PIPERACILLIN/TAZOBACTAM/D5W 0 ML IV ONE (22:35)
[2019-05-03] MEDS ORDERED: VANCOMYCIN IV 200 ML ONE (22:35)
[2019-05-03] MEDS: PIPERACILLIN SODIUM/TAZOBACTAM 3.375 G in IV DEXTROSE 5% 50 ML IV SCH ×2 (22:45→23:34)
[2019-05-03] MEDS ORDERED: PIPERACILLIN/TAZOBACTAM/D5W 100 ML IV ONE (23:51)
[2019-05-04 00:05] VITALS: BP 141/77
--- NOTE | 2019-05-04 00:30 | NUR ---
CALLED BHAVIN ASSISTANT SERVICE MANAGER OF [facility] AND INVESTIGATE IF PATIENT UPDATE WITH HER VACCINE. BHAVIN SAID THAT PATIENT RECEIVED FLU & PNA VACCINE AT [facility] LAST fall.
[2019-05-04 04:00] VITALS: BP 165/89
--- NOTE | 2019-05-04 05:47 | NUR ---
PATIENT ASLEEP BUT AROUSABLE. PATIENT TELE MONITOR SINUS RHYTHM ON 70'S. PATIENT HAS NO FURTHER EPISODE OF NON PRODUCTIVE COUGH, NO COMPLAIN OF PAIN OR DISCOMFORT. PATIENT CONTINUE ON DROPLET PRECAUTIONS ORDERED, CONT TO MONITOR.
[2019-05-04] MEDS: LEVOTHYROXINE SODIUM 75 MCG TABLET PO SCH (06:34)
[2019-05-04] MEDS: PANTOPRAZOLE SODIUM 40 MG TABLET.DR PO SCH (06:34)
--- NOTE | 2019-05-04 07:34 | NUR ---
NOTIFY DR. ARAUJO THAT PATIENT HAS EPISODE OF ELEVATED BP, AWAITING FOR RESPONSE, ENDORSED TO NEXT SHIFT.
[2019-05-04 07:58] LABS: BASOPHILS % (AUTO) 0.6 % (0.0-2.0); EOSINOPHILS % (AUTO) 0.1 % (0.0-7.0); HEMATOCRIT 35.7 % (31.2-41.9); HEMOGLOBIN 12.1 g/dL (10.9-14.3); LYMPHOCYTES # (AUTO) 0.8 K/uL (20.0-40.0); LYMPHOCYTES % (AUTO) 18.6 % (20.5-51.5); MEAN CORPUSCULAR HEMOGLOBIN 29.9 uug (24.7-32.8); MEAN CORPUSCULAR HGB CONC 34 g/dL (32.3-35.6); MEAN CORPUSCULAR VOLUME 88.2 fL (75.5-95.3); MONOCYTES # (AUTO) 0.4 K/uL (2.0-10.0); MONOCYTES % (AUTO) 9.4 % (0.0-11.0); NEUTROPHILS # (AUTO) 3.2 K/uL (1.8-8.9); NEUTROPHILS % (AUTO) 71.3 % (38.5-71.5); PLATELET COUNT (AUTO) 178 K/uL (179-408); RED BLOOD CELL COUNT(AUTO) 4.05 MIL/uL (3.63-4.92); WHITE BLOOD COUNT (AUTO) 4.4 K/uL (3.8-11.8)
[2019-05-04] MEDS: QUETIAPINE FUMARATE 100 MG TABLET PO SCH (08:01)
[2019-05-04] MEDS: REPAGLINIDE 1 MG TABLET PO SCH ×2 (08:01→17:02)
[2019-05-04] MEDS: CHOLECALCIFEROL 1,000 UNIT TABLET PO SCH (08:01)
[2019-05-04] MEDS: FLUOXETINE HCL 20 MG CAPSULE PO SCH (08:01)
[2019-05-04] MEDS: DOCUSATE SODIUM 100 MG CAPSULE PO SCH ×2 (08:02→17:02)
[2019-05-04] MEDS: BENZTROPINE MESYLATE 1 MG TABLET PO SCH ×2 (08:02→17:02)
[2019-05-04] MEDS: DIVALPROEX 250 MG TABLET.DR PO SCH (08:02)
[2019-05-04] MEDS: risperiDONE 1 MG TABLET PO SCH ×2 (08:02→17:02)
[2019-05-04] MEDS: ENOXAPARIN SODIUM 40 MG/0.4 ML DISP.SYRIN SQ SCH (08:03)
[2019-05-04 08:18] LABS: BILIRUBIN,TOTAL 0.2 mg/dL (0.2-1.0); MAGNESIUM 1.9 mg/dL (1.8-2.4); PHOSPHOROUS 3.6 mg/dL (2.5-4.9); POTASSIUM 4.1 mmol/L (3.5-5.1); TOTAL PROTEIN, SERUM 6.6 g/dL (6.4-8.2)
--- NOTE | 2019-05-04 08:23 | NUR ---
Clinical Pharmacy Note: Vancomycin Dosing per Pharmacy Subjective: Vancomycin IV to start on this 68 yo female patient for suspected infection (r/o pna). Objective: BUN 10/Scr 1.0 WBC 4.4 Temperature 97.6 ht 165 cm wt 70 kg Assessment/Plan: Will start vancomycin 1000mg IVPB Q19hr for a predicted vancomycin steady state trough level of 16 mcg/ml. 2nd dose tonight at 2000. Will draw a vancomycin trough level prior to the 4th dose of vancomycin (not ordered yet). Will monitor renal function and adjust vancomycin dose, if needed, should renal function change significantly. Will follow daily.
[2019-05-04 12:04] VITALS: BP 136/82
[2019-05-04] MEDS: PIPERACILLIN SODIUM/TAZOBACTAM 3.375 G in IV DEXTROSE 5% 50 ML IV SCH ×2 (13:21→23:59)
[2019-05-04] MEDS: IV 1/2NS 1000 ML 1,000 ML IV PRN (15:56)
[2019-05-04 16:13] VITALS: BP 116/42
[2019-05-04 19:00] VITALS: BP 127/61
--- NOTE | 2019-05-04 19:50 | NUR ---
PATIENT ALERT ORIENTED, NO SOB NO CHEST PAIN, TELE MONITOR SINUS RHYTHM. DR ARAUJO D/C THE TELEMETRY. PATIENT STILL HAVE DRY COUGH, CONT ON IV ABX WITH ADVERSE REACTION NOTED, KEPT CLEAN AND DRY. CONT TO MONITOR.
[2019-05-04] MEDS: VANCOMYCIN IV 1,000 MG in IV DEXTROSE 5% 250 ML IV SCH (21:18)
[2019-05-04] MEDS: DIVALPROEX 500 MG TABLET.DR PO SCH (21:19)
[2019-05-04] MEDS: QUETIAPINE FUMARATE 200 MG TABLET PO SCH (21:19)
[2019-05-04] MEDS: ACETAMINOPHEN 325 MG TABLET PO PRN (21:48)
[2019-05-05 04:00] VITALS: BP 140/81
--- NOTE | 2019-05-05 06:25 | NUR ---
PATIENT ASLEEP BUT AROUSABLE, NO SOB NO CHEST PAIN. PATIENT STILL HAVE THIS DRY COUGH, CONT ON DROPLET PRECAUTION. PATIENT AFEBRILE, CONT TO MONITOR.
[2019-05-05] MEDS: PIPERACILLIN SODIUM/TAZOBACTAM 3.375 G in IV DEXTROSE 5% 50 ML IV SCH ×2 (06:29→14:19)
[2019-05-05] MEDS: IV 1/2NS 1000 ML 1,000 ML IV PRN (06:31)
[2019-05-05] MEDS: LEVOTHYROXINE SODIUM 75 MCG TABLET PO SCH (06:37)
[2019-05-05] MEDS: PANTOPRAZOLE SODIUM 40 MG TABLET.DR PO SCH (06:37)
[2019-05-05] MEDS: REPAGLINIDE 1 MG TABLET PO SCH ×2 (09:00→18:15)
[2019-05-05] MEDS: CHOLECALCIFEROL 1,000 UNIT TABLET PO SCH (09:01)
[2019-05-05] MEDS: DIVALPROEX 250 MG TABLET.DR PO SCH (09:01)
[2019-05-05] MEDS: DOCUSATE SODIUM 100 MG CAPSULE PO SCH ×2 (09:02→18:15)
[2019-05-05] MEDS: risperiDONE 1 MG TABLET PO SCH ×2 (09:03→18:30)
[2019-05-05] MEDS: QUETIAPINE FUMARATE 100 MG TABLET PO SCH (09:04)
[2019-05-05] MEDS: BENZTROPINE MESYLATE 1 MG TABLET PO SCH ×2 (09:04→18:15)
[2019-05-05] MEDS: FLUOXETINE HCL 20 MG CAPSULE PO SCH (09:04)
[2019-05-05] MEDS: ENOXAPARIN SODIUM 40 MG/0.4 ML DISP.SYRIN SQ SCH (09:05)
[2019-05-05 12:08] VITALS: BP 110/57
--- NOTE | 2019-05-05 14:50 | NUR ---
Clinical Pharmacy Note: Vancomycin Dosing per Pharmacy Subjective: Vancomycin IV to continue on this 68 yo female patient for suspected infection (r/o pna). Objective: BUN 10/Scr 1.0 (05/03) WBC 4.4 (05/03) Temperature 98.3 ht 165 cm wt 70 kg Assessment/Plan: Will continue vancomycin 1000mg IVPB Q19hr for a predicted vancomycin steady state trough level of 16 mcg/ml. Third dose today at 1500. Will draw a vancomycin trough level prior to the 4th dose of vancomycin (due tomorrow am at 0930). Will check trough when available and adjust as needed. Will follow
[2019-05-05] MEDS: VANCOMYCIN IV 1,000 MG in IV DEXTROSE 5% 250 ML IV SCH (15:11)
[2019-05-05 16:07] VITALS: BP 161/73
--- NOTE | 2019-05-05 19:00 | NUR ---
PATIENT AWAKE NO COMPLAIN OF PAIN, PATIENT HAS LOW GARDE TEMP. WILL MEDICATE FOR TEMP. PATIENT STILL HAS NON PRODUCTIVE COUGH, HOB ELEVATED, OXYGEN SAT WNL. NO S/S OF DISTRESS. CONT TO MONITOR.
--- NOTE | 2019-05-05 19:53 | NUR ---
PATIENT IN BED WITH HOB ELEVATED, ALERT AND ORIENTED X1. ON DROPLET ISOLATION PRECAUTION. NO SOB AND NO C/O PAIN AT THIS TIME. KEPT CLEAN AND DRY AT ALL TIMES. BED IN LOW POSITION AND SIDE RAILS UP . ALL NEEDS ATTENDED. CALL LIGHT WITHIN REACH. WILL CONTINUE TO MONITOR.
[2019-05-05 19:58] VITALS: BP 150/83
[2019-05-05] MEDS: ACETAMINOPHEN 325 MG TABLET PO PRN (20:41)
[2019-05-05] MEDS ORDERED: ALBUTEROL SULFATE 2.5 MG/3 ML NEBU NEB PRN (21:15)
[2019-05-05] MEDS ORDERED: GUAIFENESIN/CODEINE 5 ML LIQUID UDC PO PRN (21:15)
[2019-05-05] MEDS ORDERED: MIRALAX 17 GM POWD.PACK PO PRN (21:15)
[2019-05-05] MEDS: DIVALPROEX 500 MG TABLET.DR PO SCH (21:39)
[2019-05-05] MEDS: QUETIAPINE FUMARATE 200 MG TABLET PO SCH (21:39)
--- NOTE | 2019-05-05 22:00 | NUR ---
PATIENT ALERT ORIENTED, NO SOB NO CHEST PAIN. PATIENT STILL THIS NON PRODUCTIVE COUGH, AND LOW GRADE TEMP. DR ARAUJO WAS NOTIFIED THAT PATIENT HAS HISTORY OF ASTHMA, BRONCHITIS, AND PATIENT IS CONSTIPATED, MD HAS NEW ORDER. PATIENT HAS ORDER TO DISCHARGE PATIENT TO REHAB UNIT. GAVE REPORT TO SHAHANA STONE, AND TOOK ALL BELONGINGS. CURRENT TEMP 99.1 AXILLARY. ALL 2100 PO MEDS WAS GIVEN, SKIN INTACT, IV HEPLOC ON R FA 22 GAUGE INTACT.
== END 2019-05-05 22:00 | DRG 871 ==
LOC: ER 16:38 → TELE3 21:08 → MEDSURG3 05-04 21:37
PROVIDERS: ADMIT Internal Medicine; ATTEND Internal Medicine
DX: A41.9 Sepsis, unspecified organism (principal); J12.9 Viral pneumonia, unspecified; D68.59 Other primary thrombophilia; F70 Mild intellectual disabilities; E03.9 Hypothyroidism, unspecified; E78.5 Hyperlipidemia, unspecified; J45.909 Unspecified asthma, uncomplicated; E66.9 Obesity, unspecified; Z68.32 Body mass index [BMI] 32.0-32.9, adult; F25.9 Schizoaffective disorder, unspecified; Z87.01 Personal history of pneumonia (recurrent); Z79.890 Hormone replacement therapy; I25.10 Atherosclerotic heart disease of native coronary artery without angina pectoris; Z79.899 Other long term (current) drug therapy; N32.81 Overactive bladder; F03.90 Unspecified dementia, unspecified severity, without behavioral disturbance, psychotic disturbance, mood disturbance, and anxiety; E11.9 Type 2 diabetes mellitus without complications; K59.00 Constipation, unspecified; R29.6 Repeated falls
CPT/HCPCS: 36415; 70030-TC; 71045; 83605; 83735; 84100; 85025; 85730; 87040; 87086; 87400; 93005; 94640; A4663; G0378; J0456; J0696; J1100; J1650; J2543; J3370; J3490; J7030; J7040; J7050; J7060

== ENCOUNTER 2019-05-05 22:14 | Inpatient (IN) | payer MEDICARE, OTHER ==
[~2019-05-05] VITALS: Ht 157.5 cm; Wt 76.7 kg
--- NOTE | 2019-05-05 21:45 | NUR ---
Received admission report from BERTHA Bautista from [facility].
--- NOTE | 2019-05-05 22:00 | NUR ---
Admitted patient to the ARU via bed, awake, alert and oriented x3. with harsh voice and frequent non productive cough noted. VS take temp 100 oral, 94, 95% RA, 20. Routine admission care done. Plan of care initiated.
[2019-05-05] MEDS ORDERED: Z GUARD REMEDY PASTE 57 GM TUBE TOP PRN (22:45)
[2019-05-05 22:54] VITALS: BP 141/80
[2019-05-05] MEDS ORDERED: ACETAMINOPHEN 325 MG TABLET PO PRN (23:00)
--- NOTE | 2019-05-05 23:00 | NUR ---
Cooling measure initiated. Will continue to monitor temperature.
[2019-05-05] MEDS: ALBUTEROL SULFATE 2.5 MG/3 ML NEBU NEB PRN (23:21)
[2019-05-06] MEDS ORDERED: PIPERACILLIN/TAZOBACTAM/D5W 100 ML IV ONE (00:10)
[2019-05-06] MEDS: PIPERACILLIN/TAZO/D5W 3.375 GM FROZEN IV SCH ×2 (00:27→05:42)
[2019-05-06] MEDS: ALBUTEROL SULFATE 2.5 MG/3 ML NEBU NEB PRN ×2 (05:20→13:03)
[2019-05-06] MEDS ORDERED: PIPERACILLIN/TAZO/D5W 3.375 GM FROZEN IV SCH (06:00)
[2019-05-06 06:04] VITALS: BP 115/71
[2019-05-06] MEDS: LEVOTHYROXINE SODIUM 75 MCG TABLET PO SCH (06:12)
--- NOTE | 2019-05-06 07:11 | NUR ---
Shift End Report: Afibrile. Still with on and off non productive cough. Breathing treatment administered as ordered with help on her wheezing. No s/s of adverse reaction noted from Zosyn antibiotic. No complaint presented. All needs attended and met. Continue current rehab plan of care.
[2019-05-06 07:15] LABS: BASOPHILS % (AUTO) 0.8 % (0.0-2.0); EOSINOPHILS # (AUTO) 0.1 K/uL (0.0-0.7); EOSINOPHILS % (AUTO) 2.3 % (0.0-7.0); HEMATOCRIT 35.2 % (31.2-41.9); HEMOGLOBIN 11.6 g/dL (10.9-14.3); LYMPHOCYTES # (AUTO) 1.4 K/uL (20.0-40.0); LYMPHOCYTES % (AUTO) 37.9 % (20.5-51.5); MEAN CORPUSCULAR HEMOGLOBIN 29.3 uug (24.7-32.8); MEAN CORPUSCULAR HGB CONC 33 g/dL (32.3-35.6); MEAN CORPUSCULAR VOLUME 88.5 fL (75.5-95.3); MONOCYTES # (AUTO) 0.7 K/uL (2.0-10.0); MONOCYTES % (AUTO) 19.2 % (0.0-11.0); NEUTROPHILS # (AUTO) 1.5 K/uL (1.8-8.9); NEUTROPHILS % (AUTO) 39.8 % (38.5-71.5); PLATELET COUNT (AUTO) 132 K/uL (179-408); RED BLOOD CELL COUNT(AUTO) 3.98 MIL/uL (3.63-4.92); WHITE BLOOD COUNT (AUTO) 3.8 K/uL (3.8-11.8)
[2019-05-06 07:34] LABS: BILIRUBIN,TOTAL 0.2 mg/dL (0.2-1.0); CREATININE 1.1 mg/dL (0.6-1.3); PHOSPHOROUS 4.3 mg/dL (2.5-4.9); POTASSIUM 3.6 mmol/L (3.5-5.1); TOTAL PROTEIN, SERUM 6.1 g/dL (6.4-8.2)
[2019-05-06 08:11] LABS: EOSINOPHILS % (MANUAL) 4 % (0-8); LYMPHOCYTES % (MANUAL) 38 % (20-40); MONOCYTES % (MANUAL) 18 % (2-10); NEUTROPHILS % (MANUAL) 40 % (42-75)
[2019-05-06] MEDS: GUAIFENESIN/CODEINE 5 ML LIQUID UDC PO PRN (09:15)
[2019-05-06] MEDS: DOCUSATE SODIUM 100 MG CAPSULE PO SCH ×2 (09:15→17:48)
[2019-05-06] MEDS: CHOLECALCIFEROL 1,000 UNIT TABLET PO SCH (09:16)
[2019-05-06] MEDS: MULTIVITAMINS,THERAPEUTIC TABLET PO SCH (09:16)
[2019-05-06] MEDS: REPAGLINIDE 1 MG TABLET PO SCH ×2 (10:01→17:48)
[2019-05-06] MEDS: DIVALPROEX 250 MG TABLET.DR PO SCH (10:02)
[2019-05-06] MEDS: QUETIAPINE FUMARATE 100 MG TABLET PO SCH (10:02)
[2019-05-06] MEDS: FLUOXETINE HCL 20 MG CAPSULE PO SCH (10:03)
[2019-05-06] MEDS: risperiDONE 2 MG TABLET PO SCH ×2 (10:03→17:47)
[2019-05-06] MEDS: BENZTROPINE MESYLATE 1 MG TABLET PO SCH ×2 (10:03→17:47)
[2019-05-06] MEDS: VANCOMYCIN IV 1,250 MG in IV DEXTROSE 5% 250 ML IV SCH (11:46)
--- NOTE | 2019-05-06 12:55 | NUR ---
Clinical pharmacy note-Vancomycin dosing per pharmacy Subjective: To continue Vancomycin on this patient for sepsis/ rule out pneumonia(patient is from [facility]) Objective: BUN 9, Scr 1.1 WBC 3.8 Temp 98.7 Ht 158cm Wt 76kg Vancomycin trough today at 0940: 7.6(10 min delay) Assessment/Plan: Patient was on Vancomycin 1 gram IV every 19hrs (third dose given yesterday at 1500) in [facility]. Since Vancomycin trough is subtherapeutic, will increase dose to 1250mg IV every 14hrs(first dose given today at 1100) and draw trough by 4th dose(not ordered yet) for expected trough around 15.9. Will monitor renal function closely to adjust the dose if needed.
[2019-05-06] MEDS: PIPERACILLIN SODIUM/TAZOBACTAM 3.375 G in IV DEXTROSE 5% 50 ML IV SCH ×2 (14:06→21:40)
[2019-05-06 14:46] VITALS: BP 119/60
--- NOTE | 2019-05-06 15:01 | NUR ---
UA collected-sent to lab for UA/CS. awaiting for result
--- NOTE | 2019-05-06 15:57 | NUR ---
Received patient awake in bed in stable condition. Alert and orientedx2-3 with periods of confusion. Ongoing oxygen via nasal cannula at 2LPM. SPO2- 96%. Patient started therapy for increase strenght and endurance. tolerated well. no complanit of pain noted. no agitation problem noted. PRN robitussin for cough given. afebrile 98.5' F. Continue contact isolation. Ongoing IV ATB for ESBL urine. no adverse reaction noted. IV site intact and patent. no complaint voiced. will continue monitor
[2019-05-06 17:03] LABS: *BILIRUBIN,URIN NEGATIVE (NEGATIVE); *BLOOD, URINE NEGATIVE (NEGATIVE); *CLARITY,URINE CLEAR (CLEAR); *COLOR,URINE YELLOW (YELLOW); *KETONES,URINE NEGATIVE (NEGATIVE); *UROBILINOGEN,URINE 0.2 E.U./dl (NORMAL); LEUKOCYTE ESTERASE ,URINE NEGATIVE (NEGATIVE); NITRITE, URINE NEGATIVE (NEGATIVE); UGLUCOSE NEGATIVE (NEGATIVE)
--- NOTE | 2019-05-06 19:40 | NUR ---
Sleeping during initial rounds with HOB elevated with continuos O2 at 2L via NC. NO s/s of respiratory distress. HL on RFA intact and patent. No s/s of infiltration. Safety measures and fall precaution maintained. Continue care as planned.
[2019-05-06 20:00] VITALS: BP 127/64
[2019-05-06] MEDS: DIVALPROEX 500 MG TABLET.DR PO SCH (20:33)
[2019-05-06] MEDS: QUETIAPINE FUMARATE 200 MG TABLET PO SCH (20:34)
--- NOTE | 2019-05-06 23:50 | NUR ---
Good brooks care and skin care rendered after bladder incontinence. Tolerated procedure well. Still having on and off non productive cough. Encouraged increased oral liquid intake as tolerated. Afebrile.
[2019-05-07] MEDS: VANCOMYCIN IV 1,250 MG in IV DEXTROSE 5% 250 ML IV SCH ×2 (01:00→15:31)
[2019-05-07 05:31] VITALS: BP 137/68
[2019-05-07] MEDS: PIPERACILLIN SODIUM/TAZOBACTAM 3.375 G in IV DEXTROSE 5% 50 ML IV SCH ×3 (05:42→21:42)
[2019-05-07] MEDS: LEVOTHYROXINE SODIUM 75 MCG TABLET PO SCH (06:10)
--- NOTE | 2019-05-07 06:30 | NUR ---
Shift End Report: VS stable. Slept well. Kind of disoriented to time, place and situation. No complaint presented all night. All needs attended and met. No s/s of adverse reaction noted from antibiotics. NO significant event reported all night. Continue current rehab plan of care.
[2019-05-07] MEDS: risperiDONE 2 MG TABLET PO SCH ×2 (08:55→16:26)
[2019-05-07] MEDS: REPAGLINIDE 1 MG TABLET PO SCH ×2 (08:55→18:17)
[2019-05-07] MEDS: DIVALPROEX 250 MG TABLET.DR PO SCH (08:55)
[2019-05-07] MEDS: BENZTROPINE MESYLATE 1 MG TABLET PO SCH ×2 (08:55→16:26)
[2019-05-07] MEDS: FLUOXETINE HCL 20 MG CAPSULE PO SCH (08:56)
[2019-05-07] MEDS: DOCUSATE SODIUM 100 MG CAPSULE PO SCH ×2 (08:59→16:26)
[2019-05-07] MEDS: CHOLECALCIFEROL 1,000 UNIT TABLET PO SCH (08:59)
[2019-05-07] MEDS: MULTIVITAMINS,THERAPEUTIC TABLET PO SCH (08:59)
[2019-05-07] MEDS: QUETIAPINE FUMARATE 100 MG TABLET PO SCH (09:11)
[2019-05-07] MEDS: GUAIFENESIN/CODEINE 5 ML LIQUID UDC PO PRN (09:13)
--- NOTE | 2019-05-07 11:22 | NUR ---
Clinical pharmacy note-Vancomycin dosing per pharmacy Subjective: To continue Vancomycin on this patient for sepsis/ rule out pneumonia(patient is from [facility]) Objective: BUN 9 (05/05) Scr 1.1 (05/05)WBC 3.8 (05/05) Temp 98.3 Ht 158cm Wt 76kg Vancomycin trough today at 0940: 7.6(10 min delay) Vanco trough pending tomorrow 05/06 at 0430 Assessment/Plan: Will continue vancomycin 1250mg IV every 14hrs(3rd dose today at 1500) and draw trough by 4th dose(due tomorrow at 0430) for expected trough around 15.9. RN endorsed to hold dose if Trough >20. Will check level in am and adjust as needed. Will follow
--- NOTE | 2019-05-07 16:47 | NUR ---
NO DISTRESS NOTED, TOLERATED MEALS WELL, STILL NOTED WITH COUGH, NONPRODUCTIVE. NO SOB.
[2019-05-07 16:49] VITALS: BP 126/72
--- NOTE | 2019-05-07 19:40 | NUR ---
In bed, sleeping during initial rounds but easily arousable when touch. No s/s of pain/discomforts noted. Safety measure and fall precaution maintained. Continue care as planned.
[2019-05-07 20:00] VITALS: BP 142/73
[2019-05-07] MEDS: QUETIAPINE FUMARATE 200 MG TABLET PO SCH (20:43)
[2019-05-07] MEDS: DIVALPROEX 500 MG TABLET.DR PO SCH (20:43)
[2019-05-08] MEDS: VANCOMYCIN IV 1,250 MG in IV DEXTROSE 5% 250 ML IV SCH ×3 (04:49→11:46)
--- NOTE | 2019-05-08 05:00 | NUR ---
Vanco trough 26.5, Vanco ATB due held per parameter. Will endorse to oncoming nurse.
[2019-05-08] MEDS: LEVOTHYROXINE SODIUM 75 MCG TABLET PO SCH (05:56)
[2019-05-08] MEDS: PIPERACILLIN SODIUM/TAZOBACTAM 3.375 G in IV DEXTROSE 5% 50 ML IV SCH ×4 (05:56→21:10)
[2019-05-08 06:00] VITALS: BP 129/62
--- NOTE | 2019-05-08 07:18 | NUR ---
Shift End Report: No complaint presented all night. Slept well. Continue on antibiotics as ordered without s/s of adverse reaction noted. HL on RFA intact and patent, no s/s of infiltration. All needs attended and met. Temp of 99.3 this AM, good bed bath given tolerated well. Still with occasional non productive cough. No significant event reported all night. Continue current rehab plan of care.
[2019-05-08 08:00] VITALS: BP 120/50
[2019-05-08] MEDS: MULTIVITAMINS,THERAPEUTIC TABLET PO SCH (08:26)
[2019-05-08] MEDS: FLUOXETINE HCL 20 MG CAPSULE PO SCH (08:26)
[2019-05-08] MEDS: GUAIFENESIN/CODEINE 5 ML LIQUID UDC PO PRN (08:26)
[2019-05-08] MEDS: risperiDONE 2 MG TABLET PO SCH ×2 (08:26→16:58)
[2019-05-08] MEDS: REPAGLINIDE 1 MG TABLET PO SCH ×2 (08:27→17:01)
[2019-05-08] MEDS: CHOLECALCIFEROL 1,000 UNIT TABLET PO SCH (08:27)
[2019-05-08] MEDS: DOCUSATE SODIUM 100 MG CAPSULE PO SCH ×2 (08:27→16:58)
[2019-05-08] MEDS: BENZTROPINE MESYLATE 1 MG TABLET PO SCH ×2 (08:27→16:58)
[2019-05-08] MEDS: DIVALPROEX 250 MG TABLET.DR PO SCH (08:27)
[2019-05-08] MEDS: QUETIAPINE FUMARATE 100 MG TABLET PO SCH (08:27)
--- NOTE | 2019-05-08 12:52 | NUR ---
INDIVIDUALIZED PLAN OF CAR
--- NOTE | 2019-05-08 13:20 | NUR ---
Clinical pharmacy note-Vancomycin dosing per pharmacy Subjective: To continue Vancomycin on this patient for sepsis/ rule out pneumonia(patient is from [facility]) Objective: BUN 9 (05/05) Scr 1.1 (05/05)WBC 3.8 (05/05) Temp 99.3 Ht 158cm Wt 76kg Vancomycin trough today at 0940: 7.6(10 min delay) Vanco trough 05/06 at 0430: 26.5 Assessment/Plan: Based on brake repairer trough today, will adjust regimen to vancomycin 1250mg q20hr for new estimated trough of 15.8. Second dose will be today at 1130. Will order trough before 4th scheduled dose (not ordered yet). Will follow
[2019-05-08 16:00] VITALS: BP 113/72
--- NOTE | 2019-05-08 18:30 | NUR ---
Received resident awake in bed. Alert and orientedx1-2. Continue therapy for increase strenght and endurance. tolerated well. Continue IV vancomyzin and zosyn ATB treatment for early sepsis. no adverse reaction noted. Less cought noted. robitussin 10mg PRN given. no agitation or increase anxiety noted. will continue monitor
[2019-05-08 20:25] VITALS: BP 155/72
[2019-05-08] MEDS: QUETIAPINE FUMARATE 200 MG TABLET PO SCH (21:07)
[2019-05-08] MEDS: DIVALPROEX 500 MG TABLET.DR PO SCH (21:07)
--- NOTE | 2019-05-08 21:58 | NUR ---
OOB in chair upon initial rounds. AAOx3-4 No acute distress noted. Needs attended. VSS. IV Zosyn given at scheduled times. Tolerated well. No ill effects noted. Incontinent of bowel and bladder. Kept clean and dry. Fall precautions maintained. Siderails up for safety. Will monitor patient.
[2019-05-09 05:33] VITALS: BP 144/69
[2019-05-09] MEDS: PIPERACILLIN SODIUM/TAZOBACTAM 3.375 G in IV DEXTROSE 5% 50 ML IV SCH ×3 (06:00→22:20)
[2019-05-09] MEDS: LEVOTHYROXINE SODIUM 75 MCG TABLET PO SCH (06:35)
[2019-05-09] MEDS: VANCOMYCIN IV 1,250 MG in IV DEXTROSE 5% 250 ML IV SCH (06:36)
--- NOTE | 2019-05-09 07:15 | NUR ---
With bedside report IV to RFA noted to be red, swollen and infiltrated. Iv currently running with morning dose of vancomycin, upon palpation patient withdrawing arm and c/of pain. IV site dcd. extremity elevated and heat pad applied as requested by patient who is c/of pain at the site. picture taken and a new IV G20 access of left hand started. Will continue to monitor.
[2019-05-09 08:00] VITALS: BP 132/75
[2019-05-09] MEDS: FLUOXETINE HCL 20 MG CAPSULE PO SCH (08:43)
[2019-05-09] MEDS: QUETIAPINE FUMARATE 100 MG TABLET PO SCH (08:43)
[2019-05-09] MEDS: MULTIVITAMINS,THERAPEUTIC TABLET PO SCH (08:43)
[2019-05-09] MEDS: DIVALPROEX 250 MG TABLET.DR PO SCH (08:43)
[2019-05-09] MEDS: BENZTROPINE MESYLATE 1 MG TABLET PO SCH ×2 (08:43→17:00)
[2019-05-09] MEDS: REPAGLINIDE 1 MG TABLET PO SCH ×2 (08:43→17:08)
[2019-05-09] MEDS: DOCUSATE SODIUM 100 MG CAPSULE PO SCH ×2 (08:43→16:57)
[2019-05-09] MEDS: CHOLECALCIFEROL 1,000 UNIT TABLET PO SCH (08:43)
[2019-05-09] MEDS: risperiDONE 2 MG TABLET PO SCH ×2 (08:44→16:57)
--- NOTE | 2019-05-09 10:20 | NUR ---
Clinical pharmacy note-Vancomycin dosing per pharmacy Subjective: To continue Vancomycin on this patient for sepsis/ rule out pneumonia(patient is from [facility]) Objective: BUN 9 (05/05) Scr 1.1 (05/05)WBC 3.8 (05/05) Temp 97.6 Ht 158cm Wt 76kg Vancomycin trough today at 0940: 7.6(10 min delay) Vanco trough 05/06 at 0430: 26.5 Assessment/Plan: Will continue Vancomycin 1250mg q20hr for new estimated trough of 15.8. Third dose was given today at 0730. Will order trough before 4th scheduled dose (ordered for tomorrow at 0300, will endorse nurse to hold if level is over 20). Will follow
--- NOTE | 2019-05-09 14:41 | NUR ---
INTERDISCIPLINARY TEAM CONFERENCE
[2019-05-09 16:00] VITALS: BP 125/76
[2019-05-09] MEDS: GUAIFENESIN/CODEINE 5 ML LIQUID UDC PO PRN ×2 (16:56→20:03)
[2019-05-09 19:36] VITALS: BP 157/88
--- NOTE | 2019-05-09 19:37 | NUR ---
RECEIVED PATIENT IN BED, ALERT AND VERBALLY RESPONSIVE. AFEBRILE. WITH EPISODES OF COUGHING. ON CONTINUOUS OXYGEN AT 2L/MIN VIA NC. IN NO RESPIRATORY DISTRESS. RESPIRATIONS EVEN AND UNLABORED. NO COMPLAINTS OF PAIN AT THIS TIME. WITH SLIGHT REDNESS OF RIGHT FOREARM FROM PREVIOUS IV SITE INFILTRATION. PATIENT WITH IV SITE ON LEFT HAND, INTACT WITH NO S/S INFILTRATION. WILL CONTINUE TO OBSERVE FALL AND SAFETY PRECAUTIONS AND WILL KEEP PATIENT WARM, DRY, AND COMFORTABLE.
[2019-05-09] MEDS: QUETIAPINE FUMARATE 200 MG TABLET PO SCH (20:03)
[2019-05-09] MEDS: DIVALPROEX 500 MG TABLET.DR PO SCH (20:03)
[2019-05-10 05:33] VITALS: BP 129/76
[2019-05-10] MEDS: PIPERACILLIN SODIUM/TAZOBACTAM 3.375 G in IV DEXTROSE 5% 50 ML IV SCH (05:35)
[2019-05-10 06:40] LABS: CREATININE 1.7 mg/dL (0.6-1.3); POTASSIUM 3.9 mmol/L (3.5-5.1)
[2019-05-10] MEDS: LEVOTHYROXINE SODIUM 75 MCG TABLET PO SCH (06:53)
--- NOTE | 2019-05-10 06:53 | NUR ---
PATIENT IN BED, SLEPT WELL THROUGH THE NIGHT. PATIENT RECEIVED DUE MEDICATIONS AND TOLERATED WELL. KEPT PATIENT CLEAN AND DRY. FALL AND SAFETY PRECAUTIONS OBSERVED. RECEIVED ZOSYN IV THERAPY WITH LEFT HAND PERIPHERAL LINE. TOLERATED WELL. NO ASE D/T ATB THERAPY OBSERVED. PATIENT CONTINUES TO BE ON 2L/MIN OF OXYGEN VIA NC. TOLERATED WELL. IN NO RESPIRATORY OR ACUTE DISTRESS.
[2019-05-10] MEDS: CHOLECALCIFEROL 1,000 UNIT TABLET PO SCH (09:15)
[2019-05-10] MEDS: FLUOXETINE HCL 20 MG CAPSULE PO SCH (09:15)
[2019-05-10] MEDS: DIVALPROEX 250 MG TABLET.DR PO SCH (09:16)
[2019-05-10] MEDS: QUETIAPINE FUMARATE 100 MG TABLET PO SCH (09:16)
[2019-05-10] MEDS: REPAGLINIDE 1 MG TABLET PO SCH ×2 (09:16→17:42)
[2019-05-10] MEDS: MULTIVITAMINS,THERAPEUTIC TABLET PO SCH (09:16)
[2019-05-10] MEDS: DOCUSATE SODIUM 100 MG CAPSULE PO SCH ×2 (09:16→17:41)
[2019-05-10] MEDS: BENZTROPINE MESYLATE 1 MG TABLET PO SCH ×2 (09:17→17:42)
[2019-05-10] MEDS: risperiDONE 2 MG TABLET PO SCH ×2 (09:23→17:41)
[2019-05-10] MEDS: GUAIFENESIN/CODEINE 5 ML LIQUID UDC PO PRN (13:59)
[2019-05-10 19:40] VITALS: BP 157/83
--- NOTE | 2019-05-10 19:48 | NUR ---
RECEIVED PATIENT IN BED, ASLEEP BUT EASILY AROUSABLE. ON CONTINUOUS OXYGEN AT 2L/MIN VIA NC. IN NO RESPIRATORY DISTRESS. RESPIRATIONS EVEN AND UNLABORED. NO COMPLAINTS OF PAIN AT THIS TIME. NO FACIAL GRIMACING NOTED. WILL CONTINUE TO OBSERVE FALL AND SAFETY PRECAUTIONS AND WILL KEEP PATIENT WARM, DRY, AND COMFORTABLE.
[2019-05-10] MEDS: DIVALPROEX 500 MG TABLET.DR PO SCH (21:15)
[2019-05-10] MEDS: QUETIAPINE FUMARATE 200 MG TABLET PO SCH (21:16)
[2019-05-11 04:40] VITALS: BP 132/62
--- NOTE | 2019-05-11 04:42 | NUR ---
PATIENT ASSISTED TO BATHROOM X 2 TIMES. WITH EPISODE OF VOIDING AND BM. TOLERATED BRP WELL. PATIENT IN NO ACUTE OR RESPIRATORY DISTRESS. ALL NEEDS ATTENDED. COMPLETE LINENS CHANGED. KEPT PATIENT WARM, DRY, AND COMFORTABLE. ALL NEEDS ATTENDED.
[2019-05-11] MEDS: LEVOTHYROXINE SODIUM 75 MCG TABLET PO SCH (06:54)
[2019-05-11 08:00] VITALS: BP 140/69
[2019-05-11] MEDS: DOCUSATE SODIUM 100 MG CAPSULE PO SCH ×2 (09:24→18:24)
[2019-05-11] MEDS: CHOLECALCIFEROL 1,000 UNIT TABLET PO SCH (09:24)
[2019-05-11] MEDS: MULTIVITAMINS,THERAPEUTIC TABLET PO SCH (09:24)
[2019-05-11] MEDS: risperiDONE 2 MG TABLET PO SCH ×2 (09:25→18:24)
[2019-05-11] MEDS: REPAGLINIDE 1 MG TABLET PO SCH ×2 (09:25→18:24)
[2019-05-11] MEDS: QUETIAPINE FUMARATE 100 MG TABLET PO SCH (09:25)
[2019-05-11] MEDS: DIVALPROEX 250 MG TABLET.DR PO SCH (09:25)
[2019-05-11] MEDS: FLUOXETINE HCL 20 MG CAPSULE PO SCH (09:26)
[2019-05-11] MEDS: BENZTROPINE MESYLATE 1 MG TABLET PO SCH ×2 (09:28→18:25)
[2019-05-11] MEDS: GUAIFENESIN/CODEINE 5 ML LIQUID UDC PO PRN (14:07)
[2019-05-11 16:00] VITALS: BP 135/50
--- NOTE | 2019-05-11 19:29 | NUR ---
RECEIVED PATIENT IN BED, ALERT AND VERBALLY RESPONSIVE. RESPIRATIONS EVEN AND UNLABORED. ON CONTINUOUS O2 AT 2L/MIN VIA NC. TOLERATED WELL. PATIENT IS WARM, DRY, AND COMFORTABLE. ALL NEEDS ATTENDED.
[2019-05-11 20:10] VITALS: BP 110/87
[2019-05-11] MEDS: QUETIAPINE FUMARATE 200 MG TABLET PO SCH (20:44)
[2019-05-11] MEDS: DIVALPROEX 500 MG TABLET.DR PO SCH (20:44)
--- NOTE | 2019-05-12 05:00 | NUR ---
PATIENT IS IN BED, ASLEEP BUT EASILY AROUSABLE. STILL ON O2 AT 2 L/MIN. PATIENT SLEPT WELL THROUGH THE NIGHT. IN NO RESPIRATORY OR ACUTE DISTRESS. FALL AND SAFETY PRECAUTIONS OBSERVED. ALL NEEDS ATTENDED AND ANTICIPATED.
[2019-05-12] MEDS: LEVOTHYROXINE SODIUM 75 MCG TABLET PO SCH (06:09)
[2019-05-12 06:30] VITALS: BP 136/71
--- NOTE | 2019-05-12 07:20 | NUR ---
Received patient in bed asleep but arousable to name. Able to state name, and place. On O2 @ 2L saturating at 98% and has episodes of coughing. NO respiratory distress noted, no complaints of pain. IV 20g on left hand with no signs of infiltration. Reoriented to use call light. Bed locked in lowest position with side rails 2x up. Will continue to monitor
[2019-05-12] MEDS: GUAIFENESIN/CODEINE 5 ML LIQUID UDC PO PRN ×2 (07:45→14:40)
[2019-05-12 07:48] VITALS: BP 147/69
[2019-05-12] MEDS: MULTIVITAMINS,THERAPEUTIC TABLET PO SCH (09:19)
[2019-05-12] MEDS: CHOLECALCIFEROL 1,000 UNIT TABLET PO SCH (09:19)
[2019-05-12] MEDS: FLUOXETINE HCL 20 MG CAPSULE PO SCH (09:19)
[2019-05-12] MEDS: DOCUSATE SODIUM 100 MG CAPSULE PO SCH ×2 (09:19→16:59)
[2019-05-12] MEDS: REPAGLINIDE 1 MG TABLET PO SCH ×2 (09:20→17:00)
[2019-05-12] MEDS: risperiDONE 2 MG TABLET PO SCH ×2 (09:21→17:41)
[2019-05-12] MEDS: BENZTROPINE MESYLATE 1 MG TABLET PO SCH ×2 (09:21→16:59)
[2019-05-12] MEDS: QUETIAPINE FUMARATE 100 MG TABLET PO SCH (09:22)
[2019-05-12] MEDS: DIVALPROEX 250 MG TABLET.DR PO SCH (09:22)
[2019-05-12 11:18] LABS: EOSINOPHILS # (AUTO) 0.2 K/uL (0.0-0.7); HEMOGLOBIN 11.7 g/dL (10.9-14.3); LYMPHOCYTES # (AUTO) 1.7 K/uL (20.0-40.0); MEAN CORPUSCULAR VOLUME 88.3 fL (75.5-95.3); MONOCYTES # (AUTO) 0.6 K/uL (2.0-10.0)
[2019-05-12 11:28] LABS: BILIRUBIN,TOTAL 0.3 mg/dL (0.2-1.0); CREATININE 1.6 mg/dL (0.6-1.3); MAGNESIUM 2.1 mg/dL (1.8-2.4); PHOSPHOROUS 3.1 mg/dL (2.5-4.9); POTASSIUM 4.2 mmol/L (3.5-5.1); TOTAL PROTEIN, SERUM 7.1 g/dL (6.4-8.2)
[2019-05-12 11:52] LABS: BASOPHILS # (AUTO) 0.1 K/uL (0.0-8.0); BASOPHILS % (AUTO) 0.9 % (0.0-2.0); EOSINOPHILS % (AUTO) 4.4 % (0.0-7.0); HEMATOCRIT 35.1 % (31.2-41.9); LYMPHOCYTES % (AUTO) 31.1 % (20.5-51.5); MEAN CORPUSCULAR HEMOGLOBIN 29.6 uug (24.7-32.8); MEAN CORPUSCULAR HGB CONC 34 g/dL (32.3-35.6); MONOCYTES % (AUTO) 10.8 % (0.0-11.0); NEUTROPHILS # (AUTO) 2.8 K/uL (1.8-8.9); NEUTROPHILS % (AUTO) 52.8 % (38.5-71.5); PLATELET COUNT (AUTO) 248 K/uL (179-408); RED BLOOD CELL COUNT(AUTO) 3.97 MIL/uL (3.63-4.92); WHITE BLOOD COUNT (AUTO) 5.3 K/uL (3.8-11.8)
--- NOTE | 2019-05-12 14:43 | NUR ---
Patient still having dry, non-productive cough. Robitussin PRN given as ordered. O2 @ 2L sat 97% with no SOB. No fever with temp 98 degrees.
[2019-05-12 14:59] VITALS: BP 146/70
[2019-05-12] MEDS: ALBUTEROL SULFATE 2.5 MG/3 ML NEBU NEB PRN (18:10)
--- NOTE | 2019-05-12 18:10 | NUR ---
Patient still having non-productive cough and complained slight SOB, called RT, Albuterol Neb PRN given as ordered.
--- NOTE | 2019-05-12 19:03 | NUR ---
Patient in bed, finished with breathing treatment and stated feeling a lot better. Still on O2 @ 2L with no SOB. Call light within reach and will continue to monitor for safety.
[2019-05-12 20:23] VITALS: BP 128/64
[2019-05-12] MEDS: DIVALPROEX 500 MG TABLET.DR PO SCH (20:33)
[2019-05-12] MEDS: QUETIAPINE FUMARATE 200 MG TABLET PO SCH (20:33)
--- NOTE | 2019-05-13 00:40 | NUR ---
PATIENT IN BED, ASLEEP AT THIS TIME. EASILY AROUSABLE WITH CALLING OF NAME. RECEIVED DUE MEDICATIONS. TOLERATED WELL. ON CONTINUOUS O2 AT 2L/MIN VIA NC. TOLERATED WELL. RESPIRATIONS EVEN AND UNLABORED. GOOD PERICARE RENDERED. KEPT PATIENT CLEAN, WARM, DRY, AND COMORTABLE. FALL AND SAFETY PRECAUTIONS OBSERVED. WILL CONTINUE TO ATTEND TO PATIENT'S NEEDS.
[2019-05-13 05:21] VITALS: BP 154/85
--- NOTE | 2019-05-13 05:36 | NUR ---
PATIENT IS AWAKE, ALERT AND VERBALLY RESPONSIVE. STILL ON O2 AT 2 L/MIN. PATIENT SLEPT WELL THROUGH THE NIGHT. ASSISTED TO BATHROOM WITH WALKER. PARTIAL LINEN CHANGE DONE. GOOD PERICARE/ PERSONAL HYGIENE RENDERED. KEPT PATIENT CLEAN AND DRY. FALL AND SAFETY PRECAUTIONS OBSERVED. ALL NEEDS ATTENDED AND ANTICIPATED. URINE COLLECTED AND SENT TO LAB.
[2019-05-13] MEDS: LEVOTHYROXINE SODIUM 75 MCG TABLET PO SCH (06:08)
[2019-05-13 07:19] LABS: EOSINOPHILS # (AUTO) 0.2 K/uL (0.0-0.7); EOSINOPHILS % (AUTO) 5.2 % (0.0-7.0); HEMATOCRIT 34.6 % (31.2-41.9); HEMOGLOBIN 11.5 g/dL (10.9-14.3); LYMPHOCYTES # (AUTO) 1.8 K/uL (20.0-40.0); LYMPHOCYTES % (AUTO) 38.2 % (20.5-51.5); MEAN CORPUSCULAR HEMOGLOBIN 29.3 uug (24.7-32.8); MEAN CORPUSCULAR HGB CONC 33 g/dL (32.3-35.6); MEAN CORPUSCULAR VOLUME 88.1 fL (75.5-95.3); MONOCYTES # (AUTO) 0.7 K/uL (2.0-10.0); MONOCYTES % (AUTO) 14.7 % (0.0-11.0); NEUTROPHILS # (AUTO) 1.9 K/uL (1.8-8.9); NEUTROPHILS % (AUTO) 40.9 % (38.5-71.5); PLATELET COUNT (AUTO) 252 K/uL (179-408); RED BLOOD CELL COUNT(AUTO) 3.93 MIL/uL (3.63-4.92); WHITE BLOOD COUNT (AUTO) 4.6 K/uL (3.8-11.8)
[2019-05-13 07:26] LABS: *BILIRUBIN,URIN NEGATIVE (NEGATIVE); *BLOOD, URINE NEGATIVE (NEGATIVE); *CLARITY,URINE CLEAR (CLEAR); *COLOR,URINE YELLOW (YELLOW); *KETONES,URINE NEGATIVE (NEGATIVE); *UROBILINOGEN,URINE 0.2 E.U./dl (NORMAL); LEUKOCYTE ESTERASE ,URINE NEGATIVE (NEGATIVE); NITRITE, URINE NEGATIVE (NEGATIVE); UGLUCOSE NEGATIVE (NEGATIVE)
[2019-05-13 07:36] LABS: *CREATININE,URINE 73.6 mg/dL (30-125)
[2019-05-13 07:43] LABS: BILIRUBIN,TOTAL 0.3 mg/dL (0.2-1.0); CREATININE 1.4 mg/dL (0.6-1.3); MAGNESIUM 2.2 mg/dL (1.8-2.4); PHOSPHOROUS 3.9 mg/dL (2.5-4.9); POTASSIUM 4.4 mmol/L (3.5-5.1); TOTAL PROTEIN, SERUM 6.7 g/dL (6.4-8.2)
[2019-05-13] MEDS: DOCUSATE SODIUM 100 MG CAPSULE PO SCH ×2 (08:23→17:47)
[2019-05-13] MEDS: FLUOXETINE HCL 20 MG CAPSULE PO SCH (08:23)
[2019-05-13] MEDS: DIVALPROEX 250 MG TABLET.DR PO SCH (08:23)
[2019-05-13] MEDS: CHOLECALCIFEROL 1,000 UNIT TABLET PO SCH (08:23)
[2019-05-13] MEDS: risperiDONE 2 MG TABLET PO SCH ×2 (08:24→17:47)
[2019-05-13] MEDS: MULTIVITAMINS,THERAPEUTIC TABLET PO SCH (08:24)
[2019-05-13] MEDS: BENZTROPINE MESYLATE 1 MG TABLET PO SCH ×2 (08:24→17:47)
[2019-05-13] MEDS: REPAGLINIDE 1 MG TABLET PO SCH ×2 (08:24→17:49)
[2019-05-13] MEDS: QUETIAPINE FUMARATE 100 MG TABLET PO SCH (08:24)
[2019-05-13] MEDS: GUAIFENESIN/CODEINE 5 ML LIQUID UDC PO PRN ×2 (08:25→21:04)
[2019-05-13 11:07] VITALS: BP 124/68
--- NOTE | 2019-05-13 12:42 | NUR ---
Received patient awake in bed in stable condition. On oxygen PRN via nasal cannula at 2 LPM. not in distress. Patient continue therapy for increase strenght and endurance. tolerated well. Requested repeat chest x-ray for continuous coughing as per MD Macdonald order. Continue on robitussin PRN. will continue monitor
[2019-05-13 16:31] VITALS: BP 149/77
--- NOTE | 2019-05-13 19:27 | NUR ---
Patients lab and chest x-ray to MD Macdonald. no new order. Continue cough syrup robitussin PRN. will continue monitor
[2019-05-13 19:41] VITALS: BP 111/77
--- NOTE | 2019-05-13 20:13 | NUR ---
awake alert and oriented x3-4 with periods of forgetfulness at times. On continous O2 @ 2L via nasal cannula, pulse ox 95%. Cough medicine given as ordered. No acute distress noted. Incontinent of urine and BM. Kept clean and dry. No BM noted this shift. Fall precautions maintained. Siderails up for safety. VSS.
[2019-05-13] MEDS: QUETIAPINE FUMARATE 200 MG TABLET PO SCH (21:04)
[2019-05-13] MEDS: DIVALPROEX 500 MG TABLET.DR PO SCH (21:04)
[2019-05-14] MEDS: LEVOTHYROXINE SODIUM 75 MCG TABLET PO SCH (06:16)
[2019-05-14] MEDS: GUAIFENESIN/CODEINE 5 ML LIQUID UDC PO PRN (06:17)
[2019-05-14 06:24] VITALS: BP 126/78
--- NOTE | 2019-05-14 06:30 | NUR ---
End of the shift note: Quiet night. slept well. Needs attended. VSS. Incontinent of large amount of urine x3. Kept clean and dry. No BM noted this shift. Compliant with care. Robitussin given for cough. Will monitor patient.Fall precautions maintained. Siderails up for safety.
[2019-05-14] MEDS: CHOLECALCIFEROL 1,000 UNIT TABLET PO SCH (08:45)
[2019-05-14] MEDS: MULTIVITAMINS,THERAPEUTIC TABLET PO SCH (08:45)
[2019-05-14] MEDS: DOCUSATE SODIUM 100 MG CAPSULE PO SCH ×2 (08:45→16:53)
[2019-05-14] MEDS: DIVALPROEX 250 MG TABLET.DR PO SCH (08:46)
[2019-05-14] MEDS: REPAGLINIDE 1 MG TABLET PO SCH ×2 (08:46→17:00)
[2019-05-14] MEDS: QUETIAPINE FUMARATE 100 MG TABLET PO SCH (08:46)
[2019-05-14] MEDS: BENZTROPINE MESYLATE 1 MG TABLET PO SCH ×2 (08:46→16:53)
[2019-05-14] MEDS: FLUOXETINE HCL 20 MG CAPSULE PO SCH (08:46)
[2019-05-14] MEDS: risperiDONE 2 MG TABLET PO SCH ×2 (08:47→16:53)
[2019-05-14 09:00] VITALS: BP 137/73
--- NOTE | 2019-05-14 09:50 | NUR ---
Received pt. in bed, A/OX3 verbally responsive and able to make her needs known. In no acute distress or SOB, tolerating RA.Pt. ambulatory, unsteady gait, +1 person assist. All due AM medications given as ordered with no ASE. Kept pt. clean and dry. Safety measures in place. Call light and all frequently used items within reach. Will continue to monitor accordingly.
[2019-05-14 17:11] VITALS: BP 121/70
--- NOTE | 2019-05-14 18:44 | NUR ---
EOS note: No significant change during this shift. All due medications given as ordered and tolerated well. Pt. ambulatory with 1 person assist. Continent of both B&B. Pt. seen by Dr. Meeks with no new order. Pt. continue to have good urine output. Encourage glucerna and cranberry as tolerated. Safety measures in place. Call light and all frequently used items within pt. reach.
[2019-05-14 20:15] VITALS: BP 147/76
[2019-05-14] MEDS: QUETIAPINE FUMARATE 200 MG TABLET PO SCH (21:01)
[2019-05-14] MEDS: DIVALPROEX 500 MG TABLET.DR PO SCH (21:01)
--- NOTE | 2019-05-14 22:05 | NUR ---
RECEIVED PATIENT IN BED, AWAKE, ALERT AND VERBALLY RESPONSIVE. AFEBRILE. NO COMPLAINTS OF PAIN. PATIENT PLEASANT AND COOPERATIVE WITH CARE. WITH CONTINUOUS O2 AT 1L/MIN VIA NC. TOLERATED WELL. RECEIVED DUE MEDICATIONS WITH APPLE SAUCE. NO S/S ASPIRATION. TOLERATED WELL. FALL AND SAFETY PRECAUTIONS OBSERVED. WILL CONTINUE TO MONITOR PATIENT.
[2019-05-15 06:16] VITALS: BP 125/71
[2019-05-15] MEDS: LEVOTHYROXINE SODIUM 75 MCG TABLET PO SCH (06:16)
--- NOTE | 2019-05-15 06:28 | NUR ---
PATIENT SLEPT WELL THROUGH THE NIGHT. WITH ONGOING O2 AT 1L/MIN VIA NC, TOLERATED WELL. KEPT CLEAN, WARM, AND DRY. GOOD PERICARE PROVIDED. ALL NEEDS ATTENDED. FALL, SAFETY, AND ASPIRATION PRECAUTIONS OBSERVED.
[2019-05-15 08:00] VITALS: BP 126/75
[2019-05-15] MEDS: MULTIVITAMINS,THERAPEUTIC TABLET PO SCH (08:08)
[2019-05-15] MEDS: BENZTROPINE MESYLATE 1 MG TABLET PO SCH ×2 (08:08→17:05)
[2019-05-15] MEDS: CHOLECALCIFEROL 1,000 UNIT TABLET PO SCH (08:08)
[2019-05-15] MEDS: FLUOXETINE HCL 20 MG CAPSULE PO SCH (08:08)
[2019-05-15] MEDS: DOCUSATE SODIUM 100 MG CAPSULE PO SCH ×2 (08:08→17:05)
[2019-05-15] MEDS: REPAGLINIDE 1 MG TABLET PO SCH ×2 (08:09→17:05)
[2019-05-15] MEDS: risperiDONE 2 MG TABLET PO SCH ×2 (08:09→17:05)
[2019-05-15] MEDS: QUETIAPINE FUMARATE 100 MG TABLET PO SCH (08:09)
[2019-05-15] MEDS: DIVALPROEX 250 MG TABLET.DR PO SCH (08:09)
[2019-05-15] MEDS: MIRALAX 17 GM POWD.PACK PO PRN (08:10)
[2019-05-15] MEDS: GUAIFENESIN/CODEINE 5 ML LIQUID UDC PO PRN (09:03)
[2019-05-15] MEDS: GUAIFENESIN LA 600 MG TABLET.SA PO SCH ×2 (09:36→20:43)
--- NOTE | 2019-05-15 09:54 | NUR ---
Received patient awake in bed in stable condition. Patient still coughing dry. guafenesin PRN given. MD notified and order mucinex 600mg every 12 hours for 3 days for cough. not in distress. MIralax daily PRN given for constipation. not in distress. no complaint of pain/discomfort noted. will continue monitor
[2019-05-15 16:00] VITALS: BP 105/65
[2019-05-15 19:49] VITALS: BP 131/68
[2019-05-15] MEDS: DIVALPROEX 500 MG TABLET.DR PO SCH (20:45)
[2019-05-15] MEDS: QUETIAPINE FUMARATE 200 MG TABLET PO SCH (20:46)
--- NOTE | 2019-05-16 03:56 | NUR ---
Received patient in bed. AAO x3. Not in acute distress or SOB. On 1 L O2 via NC. No Complain of pain. Patient was stable throughout the shift and has a good sleep during the night. Physical assessment done. All due medication given and well tolerated. All needs attended promptly. Fall prevention observed. Safety measures maintained. Bed in low and lock position, side rails up x2 for safety. Call light and frequently used items within reach. Continue to monitor and will endorse to oncoming nurse accordingly.
[2019-05-16 05:35] VITALS: BP 128/95
[2019-05-16] MEDS: LEVOTHYROXINE SODIUM 75 MCG TABLET PO SCH (06:04)
[2019-05-16 07:30] VITALS: BP 122/68
[2019-05-16] MEDS: MULTIVITAMINS,THERAPEUTIC TABLET PO SCH (08:13)
[2019-05-16] MEDS: DOCUSATE SODIUM 100 MG CAPSULE PO SCH (08:13)
[2019-05-16] MEDS: CHOLECALCIFEROL 1,000 UNIT TABLET PO SCH (08:13)
[2019-05-16] MEDS: DIVALPROEX 250 MG TABLET.DR PO SCH (08:15)
[2019-05-16] MEDS: risperiDONE 2 MG TABLET PO SCH ×2 (08:15→17:07)
[2019-05-16] MEDS: FLUOXETINE HCL 20 MG CAPSULE PO SCH (08:16)
[2019-05-16] MEDS: BENZTROPINE MESYLATE 1 MG TABLET PO SCH ×2 (08:16→17:07)
[2019-05-16] MEDS: MIRALAX 17 GM POWD.PACK PO PRN (08:17)
[2019-05-16] MEDS: GUAIFENESIN LA 600 MG TABLET.SA PO SCH ×2 (08:17→21:02)
[2019-05-16] MEDS: REPAGLINIDE 1 MG TABLET PO SCH ×2 (08:17→17:08)
[2019-05-16] MEDS: QUETIAPINE FUMARATE 100 MG TABLET PO SCH (08:17)
[2019-05-16] MEDS: GUAIFENESIN/CODEINE 5 ML LIQUID UDC PO PRN ×3 (08:18→21:04)
--- NOTE | 2019-05-16 13:36 | NUR ---
INTERDISCIPLINARY TEAM CONFERENCE
--- NOTE | 2019-05-16 13:55 | NUR ---
patient noted constipated, order obtained for milk of magnesium, and ducolax suppository from dr horton
[2019-05-16] MEDS ORDERED: BISACODYL 10 MG SUPP.RECT RC PRN (14:00)
[2019-05-16] MEDS ORDERED: MAGNESIUM HYDROXIDE 30 ML LIQUID UDC PO PRN (14:00)
[2019-05-16 14:29] VITALS: BP 105/57
[2019-05-16] MEDS: DOCUSATE SODIUM 100 MG/10 ML LIQUID UDC PO SCH (17:08)
--- NOTE | 2019-05-16 18:16 | NUR ---
milk of magnesium given as ordered, continue to monitor for effectiveness
[2019-05-16 19:58] VITALS: BP 145/78
[2019-05-16] MEDS: DIVALPROEX SPRINKLE 125 MG CAP.SPRINK PO SCH (21:03)
[2019-05-16] MEDS: QUETIAPINE FUMARATE 200 MG TABLET PO SCH (21:03)
--- NOTE | 2019-05-16 22:11 | NUR ---
awake alert and oriented x2-3 . VSS no acute distress noted. Needs attended. Tolerated po meds well. PM care done. Incontinent of large amount of urine. Kept clean and dry. No BM noted. Fall precautions maintained. Call crawford within reach. Siderails up for safety. Due meds given without difficulty.
[2019-05-17 05:20] VITALS: BP 158/79
--- NOTE | 2019-05-17 06:07 | NUR ---
End of shift note: Quiet night. AAOx2-3 No acute distress noted. VSS. Incontinent of urine x2. Kept clean and dry No BM noted this shift. Attended to needs. Fall precautions maintained. VSS.
[2019-05-17] MEDS: LEVOTHYROXINE SODIUM 75 MCG TABLET PO SCH (06:21)
[2019-05-17 08:00] VITALS: BP 143/75
[2019-05-17] MEDS: FLUOXETINE HCL 20 MG CAPSULE PO SCH (08:48)
[2019-05-17] MEDS: BENZTROPINE MESYLATE 1 MG TABLET PO SCH ×2 (08:49→17:31)
[2019-05-17] MEDS: GUAIFENESIN LA 600 MG TABLET.SA PO SCH ×2 (08:49→20:42)
[2019-05-17] MEDS: MULTIVITAMINS,THERAPEUTIC TABLET PO SCH (08:49)
[2019-05-17] MEDS: CHOLECALCIFEROL 1,000 UNIT TABLET PO SCH (08:49)
[2019-05-17] MEDS: REPAGLINIDE 1 MG TABLET PO SCH ×2 (08:49→18:24)
[2019-05-17] MEDS: QUETIAPINE FUMARATE 100 MG TABLET PO SCH (08:49)
[2019-05-17] MEDS: DIVALPROEX SPRINKLE 125 MG CAP.SPRINK PO SCH ×2 (08:49→20:42)
[2019-05-17] MEDS: DOCUSATE SODIUM 100 MG/10 ML LIQUID UDC PO SCH ×2 (08:52→17:32)
[2019-05-17] MEDS: risperiDONE 2 MG TABLET PO SCH ×2 (09:19→17:31)
[2019-05-17 17:04] VITALS: BP 155/74
--- NOTE | 2019-05-17 18:34 | NUR ---
Patient is AAO x 2-3, able to express needs. No acute distress noted. Afebrile. Vital signs stable for patient. Denies pain. Due meds crushed and administered as ordered and tolerated well. Patient on continuous PT/OT therapy. Patient with one person assist for care. patient with lower extremists weakness noted, uses w/c to ambulate. Patient able to use bathroom with assistance during shift. Skin kept clean and dry, needs attended, safety measures in place, patient in bed and watching TV at this time, call light left within easy reach and will continue with care.
[2019-05-17 19:50] VITALS: BP 144/76
[2019-05-17] MEDS: QUETIAPINE FUMARATE 200 MG TABLET PO SCH (20:42)
[2019-05-17] MEDS: GUAIFENESIN/CODEINE 5 ML LIQUID UDC PO PRN (20:43)
--- NOTE | 2019-05-17 21:01 | NUR ---
resting in bed upon rounds. aaox2-3 In good spirits. Very anxious of going home on 05/19/19. ompliant with meds and care. Able to express needs. Incontinent of large amount of urine. No BM noted this shift. Fall precautions maintained. Call crawford within reach. VSS. Siderails up for safety.
[2019-05-18 05:29] VITALS: BP 139/71
[2019-05-18] MEDS: LEVOTHYROXINE SODIUM 75 MCG TABLET PO SCH (06:22)
--- NOTE | 2019-05-18 06:30 | NUR ---
End od the shift note: Uneventful night. aaox3-4 Needs attended. VSS. Incontinent of urine x2. Kept clean and dry. No acute distress noted. Fall precautions maintained. Siderails up for safety.
[2019-05-18] MEDS: FLUOXETINE HCL 20 MG CAPSULE PO SCH (08:44)
[2019-05-18] MEDS: DIVALPROEX SPRINKLE 125 MG CAP.SPRINK PO SCH ×2 (08:45→20:11)
[2019-05-18] MEDS: BENZTROPINE MESYLATE 1 MG TABLET PO SCH ×2 (08:47→16:45)
[2019-05-18] MEDS: QUETIAPINE FUMARATE 100 MG TABLET PO SCH (08:48)
[2019-05-18] MEDS: risperiDONE 2 MG TABLET PO SCH ×2 (08:48→16:46)
[2019-05-18] MEDS: DOCUSATE SODIUM 100 MG/10 ML LIQUID UDC PO SCH ×2 (08:49→16:47)
[2019-05-18] MEDS: GUAIFENESIN/CODEINE 5 ML LIQUID UDC PO PRN (08:50)
[2019-05-18] MEDS: REPAGLINIDE 1 MG TABLET PO SCH ×2 (08:56→16:46)
[2019-05-18] MEDS: CHOLECALCIFEROL 1,000 UNIT TABLET PO SCH (08:58)
[2019-05-18] MEDS: MULTIVITAMINS,THERAPEUTIC TABLET PO SCH (09:27)
[2019-05-18 15:37] VITALS: BP 128/78
[2019-05-18] MEDS: QUETIAPINE FUMARATE 200 MG TABLET PO SCH (20:11)
--- NOTE | 2019-05-18 21:07 | NUR ---
Received pt sitting in the wheelchair. AAO x3-4. On room air. No acute distress noted. Denies pain/ discomfort. Due meds given as ordered. Pt to be discharge tomorrow. Pt safely back in bed. Skin care rendered. Safety measures maintained. Call light and personal items within reach. Will continue to monitor.
[2019-05-18 21:12] VITALS: BP 127/71
[2019-05-19] MEDS: LEVOTHYROXINE SODIUM 75 MCG TABLET PO SCH (06:11)
[2019-05-19 06:22] VITALS: BP 132/69
[2019-05-19 06:36] LABS: BASOPHILS # (AUTO) 0.1 K/uL (0.0-8.0); BASOPHILS % (AUTO) 0.9 % (0.0-2.0); EOSINOPHILS # (AUTO) 0.2 K/uL (0.0-0.7); EOSINOPHILS % (AUTO) 4.3 % (0.0-7.0); HEMOGLOBIN 12.3 g/dL (10.9-14.3); LYMPHOCYTES # (AUTO) 2.2 K/uL (20.0-40.0); LYMPHOCYTES % (AUTO) 37.6 % (20.5-51.5); MEAN CORPUSCULAR HEMOGLOBIN 29.4 uug (24.7-32.8); MEAN CORPUSCULAR HGB CONC 33 g/dL (32.3-35.6); MEAN CORPUSCULAR VOLUME 88.7 fL (75.5-95.3); MONOCYTES # (AUTO) 0.7 K/uL (2.0-10.0); MONOCYTES % (AUTO) 11.8 % (0.0-11.0); NEUTROPHILS # (AUTO) 2.6 K/uL (1.8-8.9); NEUTROPHILS % (AUTO) 45.4 % (38.5-71.5); PLATELET COUNT (AUTO) 275 K/uL (179-408); RED BLOOD CELL COUNT(AUTO) 4.17 MIL/uL (3.63-4.92); WHITE BLOOD COUNT (AUTO) 5.7 K/uL (3.8-11.8)
[2019-05-19 06:55] LABS: BILIRUBIN,TOTAL 0.3 mg/dL (0.2-1.0); CREATININE 1.6 mg/dL (0.6-1.3); PHOSPHOROUS 4.9 mg/dL (2.5-4.9); POTASSIUM 4.5 mmol/L (3.5-5.1); TOTAL PROTEIN, SERUM 7.7 g/dL (6.4-8.2)
[2019-05-19] MEDS: REPAGLINIDE 1 MG TABLET PO SCH (08:27)
[2019-05-19] MEDS: MULTIVITAMINS,THERAPEUTIC TABLET PO SCH (08:28)
[2019-05-19] MEDS: CHOLECALCIFEROL 1,000 UNIT TABLET PO SCH (08:29)
[2019-05-19] MEDS: BENZTROPINE MESYLATE 1 MG TABLET PO SCH (08:30)
[2019-05-19] MEDS: DOCUSATE SODIUM 100 MG/10 ML LIQUID UDC PO SCH (08:30)
[2019-05-19] MEDS: QUETIAPINE FUMARATE 100 MG TABLET PO SCH (08:30)
[2019-05-19] MEDS: risperiDONE 2 MG TABLET PO SCH (08:31)
[2019-05-19] MEDS: FLUOXETINE HCL 20 MG CAPSULE PO SCH (08:31)
[2019-05-19] MEDS: DIVALPROEX SPRINKLE 125 MG CAP.SPRINK PO SCH (08:32)
[2019-05-19 09:04] VITALS: BP 125/78
--- NOTE | 2019-05-19 10:00 | NUR ---
Pt received this morning resting in bed, assessed, AAOx3-4 with evidence of DD, able to make needs known, denies pain, no SOB, and no acute distress noted. Pt sat up for both meals in wheelchair. VSS. Pt is cooperative with medication administration and compliant with therapy as offered. All safety and comfort needs met at this time. Assisted to bathroom during therapy for BMx2, returned to room. Call light and personal items placed within reach. Will continue to monitor.
[2019-05-19] MEDS ORDERED: INFLUENZA VACCINE 2019-2020 0.5 ML DISP.SYRIN IM ONE (13:45)
--- NOTE | 2019-05-19 15:15 | NUR ---
Discharge and influenza vaccine orders received. Vaccine administered following assessment completion. Discharge paperwork completed, signed, provided to Pt, and copies placed in chart. Pt education material provided to Pt. Discharge orders to continue care as ordered, and to have Luan La (mine administrator supervisor) assist with arranging any follow up care appointments with primary MD and Psych consult, plus home healthcare approval as needed. Medications list reviewed with Pt and discussed over the phone with Luan Pt's board and care mine administrator supervisor. Rx faxed to preferred pharmacy. Skin integrity intact. No home medications to return. All discharge concerns addressed. Pt safely escorted out of hospital via wheelchair and transferred to a private car with Luan driving. Will remove Pt from system shortly.
== END 2019-05-19 14:45 | disposition home health service (06) | DRG 871 ==
PROVIDERS: ADMIT Physical Medicine & Rehabilitation Pain Medicine; ATTEND Physical Medicine & Rehabilitation Pain Medicine
DX: A41.9 Sepsis, unspecified organism (principal); N17.0 Acute kidney failure with tubular necrosis; J12.9 Viral pneumonia, unspecified; D68.59 Other primary thrombophilia; D64.9 Anemia, unspecified; E03.9 Hypothyroidism, unspecified; E11.9 Type 2 diabetes mellitus without complications; E66.9 Obesity, unspecified; Z68.32 Body mass index [BMI] 32.0-32.9, adult; F03.90 Unspecified dementia, unspecified severity, without behavioral disturbance, psychotic disturbance, mood disturbance, and anxiety; F25.9 Schizoaffective disorder, unspecified; F32.9 Major depressive disorder, single episode, unspecified; F79 Unspecified intellectual disabilities; I25.10 Atherosclerotic heart disease of native coronary artery without angina pectoris; J45.909 Unspecified asthma, uncomplicated; N32.81 Overactive bladder; Z87.820 Personal history of traumatic brain injury; R62.50 Unspecified lack of expected normal physiological development in childhood; R26.9 Unspecified abnormalities of gait and mobility; R29.6 Repeated falls; Z88.8 Allergy status to other drugs, medicaments and biological substances
CPT/HCPCS: 36415; 70030-TC; 71045; 71046; 83735; 84100; 84156; 84300; 85025; 87086; 90686; 94640; 94664; A4663; J2543; J3490; J7040; J7050; J7060

== ENCOUNTER 2020-01-30 13:45 | Emergency (ER) | payer MEDICARE, OTHER ==
[~2020-01-30] VITALS: Ht 157.5 cm; Wt 76.2 kg
[~2020-01-30 13:45] MED LIST changes: -ACET-2605 PO; +ACET325T53 PO; -AMOX-430 PO; -D-ME118S12 PO; -MELO15TA13 PO; -MIRA50TA PO; +MULT-594 PO; +PIPE3.379 IV; -QUET300T2 PO; +QUET400T PO; +RXVAN XX
--- NOTE | 2020-01-30 16:00 | NUR ---
PT WAS TRIAGED. THERE ARE NO ER BEDS AVAILABLE AT THIS TIME. PT IS WAITING OUTSIDE OF THE ER WITH THE STAFF MEMBER FROM HER ASSISTED LIVING FACILITY.
--- NOTE | 2020-01-30 22:02 | NUR ---
ER at bedside
[2020-01-30] MEDS ORDERED: KETOROLAC TROMETHAMINE 60 MG INJ IM ONE ×2 (22:15→22:26)
[2020-01-30] MEDS ORDERED: TRAMADOL HCL 50 MG TABLET PO ONE (22:15)
[2020-01-30] MEDS ORDERED: TRAMADOL HCL 50 MG TABLET ONE (22:26)
--- NOTE | 2020-01-30 22:26 | NUR ---
Patient going to CT at this time.
--- NOTE | 2020-01-30 23:13 | NUR ---
PATIENT BACK FROM CT AT THIS TIME. NO ACUTE DISTRESS.
[2020-01-30 23:46] VITALS: BP 131/81
--- NOTE | 2020-01-30 23:46 | NUR ---
Patient discharged to home in stable condition. Written and verbal after care instructions given. Patient verbalizes understanding of instructions. Stressed follow up or return to ER for worsening s/s. Ambulated from ER with stable gait. All belongings with patient. VSS
--- NOTE | 2020-01-30 23:47 | NUR ---
Driven home by Luan (Caregiver)
== END 2020-01-30 23:47 ==
LOC: ER 13:45
DX: M25.551 Pain in right hip (principal); M16.11 Unilateral primary osteoarthritis, right hip; E03.9 Hypothyroidism, unspecified; F70 Mild intellectual disabilities; F03.90 Unspecified dementia, unspecified severity, without behavioral disturbance, psychotic disturbance, mood disturbance, and anxiety; J45.909 Unspecified asthma, uncomplicated; R73.03 Prediabetes; R26.81 Unsteadiness on feet; Z88.8 Allergy status to other drugs, medicaments and biological substances; Z79.899 Other long term (current) drug therapy
CPT/HCPCS: 73502; 73700; 96372; 99284; J1885; A4663

== ENCOUNTER 2020-10-30 11:17 | Emergency (ER) | payer MEDICARE, OTHER ==
[~2020-10-30] VITALS: Ht 162.6 cm; Wt 83.9 kg
--- NOTE | 2020-10-30 11:30 | NUR ---
MD at bedside at this time for assessment
[2020-10-30] MEDS ORDERED: SULFAMETH/TRIMETH 800/160 MG TABLET PO ONE (11:45)
[2020-10-30] MEDS ORDERED: IBUPROFEN 400 MG TABLET PO ONE (11:45)
[2020-10-30] MEDS ORDERED: SULF1TAB48 PO (11:49)
[2020-10-30] MEDS ORDERED: NEOMY/BACITRA/POLYMYXIN B OINT UD PACKET TP ONE ×2 (11:55→12:30)
[2020-10-30] MEDS ORDERED: SULFAMETH/TRIMETH 800/160 MG TABLET ONE (11:56)
[2020-10-30] MEDS ORDERED: IBUPROFEN 400 MG TABLET ONE (11:57)
--- NOTE | 2020-10-30 12:09 | NUR ---
Left forearm skin opening cleansed with normal saline and dressed with triple antibiotic, vaseline gauze, non adhereant gauze and bordered gauze
--- NOTE | 2020-10-30 12:16 | NUR ---
Patient discharged to home in stable condition. Ambulated with caregiver and walker, no signs of distress noted. Written and verbal after care instructions given. Patient verbalizes understanding of instructions. Stressed follow up or return to ER for worsening s/s.
[2020-10-30 12:20] VITALS: BP 165/70
== END 2020-10-30 12:23 ==
LOC: ER 11:17
DX: L03.114 Cellulitis of left upper limb (principal); S50.812A Abrasion of left forearm, initial encounter; W26.9XXA Contact with unspecified sharp object(s), initial encounter; Y92.099 Unspecified place in other non-institutional residence as the place of occurrence of the external cause; Z80.3 Family history of malignant neoplasm of breast; E03.9 Hypothyroidism, unspecified; F70 Mild intellectual disabilities; F03.90 Unspecified dementia, unspecified severity, without behavioral disturbance, psychotic disturbance, mood disturbance, and anxiety; J45.909 Unspecified asthma, uncomplicated; Z87.01 Personal history of pneumonia (recurrent); R73.03 Prediabetes; Z88.8 Allergy status to other drugs, medicaments and biological substances; Z79.890 Hormone replacement therapy; Z79.899 Other long term (current) drug therapy; R26.81 Unsteadiness on feet
CPT/HCPCS: A4663

== ENCOUNTER 2021-08-15 12:23 | Emergency (ER) | payer MEDICARE, OTHER ==
[~2021-08-15] VITALS: Ht 157.5 cm; Wt 77.1 kg
[~2021-08-15 12:23] MED LIST changes: +SULF1TAB48 PO
--- NOTE | 2021-08-15 12:38 | NUR ---
Pt brought back to room 1A by feeder catcher [place]. Pt placed on gurney in pos of comfort, changed into gown and connected to bedside monitor, initial VSS, slightly hypertensive,157/89, 95%, 16rpm, 90bpm. No s/sx of distress present.
[2021-08-15 13:03] LABS: HEMATOCRIT 34.9 % (31.2-41.9); MEAN CORPUSCULAR HEMOGLOBIN 29.6 uug (24.7-32.8); MEAN CORPUSCULAR VOLUME 89.1 fL (75.5-95.3); PLATELET COUNT (AUTO) 187 K/uL (179-408)
[2021-08-15] MEDS ORDERED: CHOL10005 PO (13:03)
[2021-08-15] MEDS ORDERED: ACET-2605 PO (13:03)
[2021-08-15] MEDS ORDERED: MELO-107 PO (13:03)
[2021-08-15] MEDS ORDERED: QUET200T PO (13:03)
[2021-08-15] MEDS ORDERED: LUTE20CA PO (13:03)
[2021-08-15 13:20] LABS: CREATININE 1.3 mg/dL (0.6-1.3)
[2021-08-15 13:25] LABS: BILIRUBIN,TOTAL 0.2 mg/dL (0.2-1.0); TOTAL PROTEIN, SERUM 7.2 g/dL (6.4-8.2)
--- NOTE | 2021-08-15 14:10 | NUR ---
Full head to toe phys exam performed on pt. Pt is aaox3 with good color and temp. pt is lucid, answers questions, follows commands and can hold conversation. Good distal pulses x4, lungs ctab, PE WNL, PERRLA, no jvd, no trach dev, no dental caries, livestock farmer strength strong and equal bilat. NSR without ectopy on monitor. no s/sxof distress present.
--- NOTE | 2021-08-15 14:25 | NUR ---
22g angio inserted into Lt ac without difficulty for CT abd and pelvis with contrast. IV saline locked for extracorporeal technician.
[2021-08-15] MEDS ORDERED: IV NORMAL SALINE 250 ML IV ONE (14:30)
[2021-08-15] MEDS ORDERED: SWABABLE VALVE TRANSFER SET EA MC ONE (14:30)
[2021-08-15] MEDS ORDERED: IOHEXOL 300MG/ML 100 ML INFUS..BTL ONE (14:30)
--- NOTE | 2021-08-15 14:38 | NUR ---
Pt taken down to CT by tech via [employer].
--- NOTE | 2021-08-15 15:02 | NUR ---
Pt just brought back from ct transported by [facility] via gurney without difficulty or incident.
--- NOTE | 2021-08-15 16:30 | NUR ---
EDMD at bedside discussing dispo with pt and facility rep.
--- NOTE | 2021-08-15 16:50 | NUR ---
Pt and handler given dc instruction and handler said he would relay instructions to nursing staff at facility. Pt signed out and wheeled out to car in [place] and placed into car without difficulty. Pt was very greatful and apprecieative of services rendered.
[2021-08-15 17:49] VITALS: BP 138/85
== END 2021-08-15 16:50 ==
LOC: ER 12:23
DX: R10.11 Right upper quadrant pain (principal); F20.9 Schizophrenia, unspecified; Z80.3 Family history of malignant neoplasm of breast; E03.9 Hypothyroidism, unspecified; F03.90 Unspecified dementia, unspecified severity, without behavioral disturbance, psychotic disturbance, mood disturbance, and anxiety; J45.909 Unspecified asthma, uncomplicated; Z87.01 Personal history of pneumonia (recurrent); M19.90 Unspecified osteoarthritis, unspecified site; F70 Mild intellectual disabilities; Z91.81 History of falling; Z88.8 Allergy status to other drugs, medicaments and biological substances; Z79.890 Hormone replacement therapy; Z79.899 Other long term (current) drug therapy
CPT/HCPCS: 36415; 70450; 71260; 72125; 74177; 80053; 85025; 99285; Q9967; A4663

== ENCOUNTER 2021-09-01 10:43 | Inpatient (IN) | payer MEDICARE, OTHER ==
[~2021-09-01] VITALS: Ht 167.6 cm; Wt 90.7 kg
[~2021-09-01 10:43] MED LIST changes: +ACET-2605 PO; -ACET325T53 PO; -DIVA250T4 PO; +LUTE20CA PO; +MELO-107 PO; -MULT-594 PO; -PIPE3.379 IV; -QUET100T PO; +QUET200T PO; -QUET400T PO; -RXVAN XX; -SULF1TAB48 PO
[2021-09-01 11:24] LABS: HEMATOCRIT 33.6 % (31.2-41.9); MEAN CORPUSCULAR HEMOGLOBIN 30.7 uug (24.7-32.8); MEAN CORPUSCULAR VOLUME 89.6 fL (75.5-95.3); PLATELET COUNT (AUTO) 228 K/uL (179-408)
[2021-09-01 11:29] LABS: CARBON DIOXIDE 27 mmol/L (21-32); CHLORIDE 102 mmol/L (98-107); CREATININE 1.1 mg/dL (0.6-1.3); GLUCOSE 179 mg/dL (74-106); POTASSIUM 4.5 mmol/L (3.5-5.1); UREA NITROGEN, BLOOD 20 mg/dL (7-18)
--- NOTE | 2021-09-01 12:01 | NUR ---
Luan (zoo caretaker): [phone]
[2021-09-01] MEDS ORDERED: ASPIRIN 325 MG TABLET PO ONE (15:15)
--- NOTE | 2021-09-01 15:15 | NUR ---
1st contact w/patient: she is alert, oriented to name w/ baseline mentation per caregiver. I assisted this patient to the bathroom. Patient was able to walk with her own walker, follows simple commands, for admission to telemetry per Dr Dinero. Nursing oil field pipeline supervisor Darlene, 3rd flr staff Daria and ER registration staff Anneliese notified re: "plan to admit".
[2021-09-01] MEDS ORDERED: ASPIRIN 325 MG TABLET ONE (15:27)
--- NOTE | 2021-09-01 16:45 | NUR ---
ADMITTED FROM ER A 71 YO FEMALE FROM ASSISTED WITH THE C/C OF CHEST PAIN, ALERT AND ABLE TO PARTICIPATE WITH ADMISSION ASSESSMENT. ROUTINE ADMISSION CARE INITIATED DR BRITT NOTIFIED OF ADMISSION. SR ON MONITOR
--- NOTE | 2021-09-01 16:46 | NUR ---
REPORT GIVEN TO HIGH SCHOOL ASSISTANT PRINCIPAL. PT WAS TRANSFERED TO TELEMETRY ROOM #310.
[2021-09-01 17:19] VITALS: BP 160/61
--- NOTE | 2021-09-01 19:35 | NUR ---
Patient received in bed awake, alert and verbally conversant. In no acute distress. Denies chest pain. Right AC IV access intact and patent. Needs assessed and attended to. Call light within easy reach.
[2021-09-01 20:06] VITALS: BP 142/81
[2021-09-01] MEDS ORDERED: REMEDY ESSENTIAL ZINC PASTE 113 GM TP PRN (22:15)
[2021-09-01] MEDS ORDERED: ACETAMINOPHEN 325 MG TABLET PO PRN (22:15)
[2021-09-01] MEDS ORDERED: DEXTROSE 50% 50 ML DISP.SYRIN IV PRN (22:15)
[2021-09-01] MEDS ORDERED: ENOXAPARIN SODIUM 40 MG/0.4 ML DISP.SYRIN SQ SCH (22:15)
[2021-09-01] MEDS ORDERED: ONDANSETRON 4 MG/2 ML VIAL IV PRN (22:15)
[2021-09-01] MEDS: IV NS 1000 ML 1,000 ML IV PRN (22:23)
[2021-09-01 23:05] LABS: THYROID STIMULATING HORMONE 23.51 mIU/mL (0.358-3.740)
[2021-09-02 00:42] VITALS: BP 146/83
[2021-09-02 04:15] VITALS: BP 140/77
--- NOTE | 2021-09-02 06:41 | NUR ---
Patient slept well, no c/o SOB or chest pain. No noted cough, in no acute distress.
[2021-09-02] MEDS: BLOOD SUGAR DIAGNOSTIC 1 EACH STRIP VI SCH ×2 (06:48→12:14)
[2021-09-02 06:56] LABS: HEMATOCRIT 34.6 % (31.2-41.9); MEAN CORPUSCULAR HEMOGLOBIN 30.3 uug (24.7-32.8); MEAN CORPUSCULAR VOLUME 89.6 fL (75.5-95.3); PLATELET COUNT (AUTO) 224 K/uL (179-408)
[2021-09-02] MEDS ORDERED: LEVOTHYROXINE SODIUM 75 MCG TABLET PO SCH (07:00)
[2021-09-02] MEDS ORDERED: REPAGLINIDE 1 MG TABLET PO SCH (07:30)
[2021-09-02 07:40] LABS: CREATININE 0.9 mg/dL (0.6-1.3); MAGNESIUM 2.1 mg/dL (1.8-2.4); PHOSPHOROUS 3.4 mg/dL (2.5-4.9); POTASSIUM 4.3 mmol/L (3.5-5.1)
[2021-09-02] MEDS ORDERED: BENZTROPINE MESYLATE 0.5 MG TABLET PO SCH (09:00)
[2021-09-02] MEDS ORDERED: DIVALPROEX 500 MG TABLET.DR PO SCH (09:00)
[2021-09-02] MEDS ORDERED: FLUOXETINE HCL 20 MG CAPSULE PO SCH (09:00)
[2021-09-02] MEDS ORDERED: DOCUSATE SODIUM 100 MG CAPSULE PO SCH (09:00)
[2021-09-02] MEDS ORDERED: BENZTROPINE MESYLATE 1 MG TABLET PO SCH (09:00)
[2021-09-02] MEDS ORDERED: ASPIRIN EC 81 MG TABLET.DR PO SCH (09:00)
[2021-09-02] MEDS ORDERED: risperiDONE 2 MG TABLET PO SCH (09:00)
--- NOTE | 2021-09-02 09:00 | NUR ---
patient is alert and oriented x4, with some anxiousness noted. Patient states she wants to go home. Patient lives in adult residential home, [facility] residential facility. patient denies any chest pain or discomfort. she is on RA, no SOB. Telemetry is SR with HR in the 90's. Dr. Lopez saw patient and no further work up is needed.- cleared by cardio. Patient states she fell and landed on her chest a few weeks ago. Fall precautions followed, call light within reach.
[2021-09-02] MEDS: INSULIN REGULAR, HUMAN 300 UNIT/3 ML VIAL SQ PRN ×2 (09:29→12:16)
[2021-09-02 12:00] VITALS: BP 149/80
[2021-09-02] MEDS: IV NS 1000 ML 1,000 ML IV PRN (12:16)
--- NOTE | 2021-09-02 15:02 | NUR ---
Seen by Dr.Tim Whitman, discharge ordered. Patient remains on NSR, no chest pain. Spoke to Luan at [facility], adult residential facility, he will supervisor picking crew patient at 3pm. Luan conformed call was on 08/15/21 and patient was worked up at this [facility] ER, no hospitalization needed.
--- NOTE | 2021-09-02 15:37 | NUR ---
Patient discharged with all belongings including dentures and walker. Discharge paperwork given to Luan from [facility].
[2021-09-02] MEDS ORDERED: QUETIAPINE FUMARATE 200 MG TABLET PO SCH (21:00)
[2021-09-02] MEDS ORDERED: QUETIAPINE FUMARATE 100 MG TABLET PO SCH (21:00)
== END 2021-09-02 15:40 | disposition home or self-care (01) | DRG 206 ==
LOC: ER 10:43 → TELE3 16:37
PROVIDERS: ADMIT Nurse Practitioner Acute Care; ATTEND Nurse Practitioner Acute Care
DX: M94.0 Chondrocostal junction syndrome [Tietze] (principal); E03.9 Hypothyroidism, unspecified; E11.9 Type 2 diabetes mellitus without complications; E66.9 Obesity, unspecified; J45.909 Unspecified asthma, uncomplicated; K59.09 Other constipation; Z79.890 Hormone replacement therapy; Z80.3 Family history of malignant neoplasm of breast; F70 Mild intellectual disabilities; F99 Mental disorder, not otherwise specified; Z91.81 History of falling; Z20.822 Contact with and (suspected) exposure to COVID-19; Z68.32 Body mass index [BMI] 32.0-32.9, adult
CPT/HCPCS: 36415; 71045; 80164; 83735; 84100; 84443; 84484; 85025; 93005; A4663; G0378; J1650; J1815; J7040

== ENCOUNTER 2022-04-03 12:33 | Emergency (ER) | payer MEDICARE, OTHER ==
[~2022-04-03] VITALS: Ht 154.9 cm; Wt 72.6 kg
[2022-04-03] MEDS ORDERED: IV NORMAL SALINE 500 ML BAG IV ONE (12:45)
[2022-04-03] MEDS ORDERED: TDAP DIPH,PERTUSS,TET VAC/PF 0.5 ML DISP.SYRIN IM ONE ×2 (12:45→13:26)
--- NOTE | 2022-04-03 12:50 | NUR ---
71 years old female presents to er with family c/o nosebridge pain/small laceration after mechanical fall today, patient hit head on the floor no LOC. ambulate with walker.
[2022-04-03 13:17] LABS: HEMATOCRIT 35.4 % (31.2-41.9); MEAN CORPUSCULAR HEMOGLOBIN 30.5 uug (24.7-32.8); MEAN CORPUSCULAR VOLUME 91.6 fL (75.5-95.3); PLATELET COUNT (AUTO) 217 K/uL (179-408)
--- NOTE | 2022-04-03 13:28 | NUR ---
patient went to CT
[2022-04-03 13:36] LABS: ALANINE AMINOTRANSFERASE 37 U/L (14-59); ALKALINE PHOSPHATASE 58 U/L (50-136); ASPARTATE AMINOTRANSFERASE 16 U/L (15-37); BILIRUBIN,DIRECT 0.1 mg/dL (0.0-0.2); BILIRUBIN,TOTAL 0.2 mg/dL (0.2-1.0); CARBON DIOXIDE 31 mmol/L (21-32); CHLORIDE 103 mmol/L (98-107); CREATININE 1.1 mg/dL (0.6-1.3); GLUCOSE 121 mg/dL (74-106); POTASSIUM 4.1 mmol/L (3.5-5.1); TOTAL PROTEIN, SERUM 6.9 g/dL (6.4-8.2); UREA NITROGEN, BLOOD 19 mg/dL (7-18)
[2022-04-03] MEDS ORDERED: ACETAMINOPHEN 325 MG TABLET PO ONE (14:15)
[2022-04-03] MEDS ORDERED: ACETAMINOPHEN 325 MG TABLET ONE (14:48)
[2022-04-03] MEDS ORDERED: CEPH500C2 PO (15:09)
--- NOTE | 2022-04-03 16:05 | NUR ---
patient reassess no pain alert, oriented x3 d/c home with family after care reviewed understood left er ambulatory with walker.
[2022-04-03 16:06] VITALS: BP 150/80
== END 2022-04-03 16:07 ==
LOC: ER 12:33
DX: S02.2XXA Fracture of nasal bones, initial encounter for closed fracture (principal); S02.40CA Maxillary fracture, right side, initial encounter for closed fracture; S00.31XA Abrasion of nose, initial encounter; W18.30XA Fall on same level, unspecified, initial encounter; Y93.01 Activity, walking, marching and hiking; Y92.89 Other specified places as the place of occurrence of the external cause; M25.78 Osteophyte, vertebrae; M48.8X2 Other specified spondylopathies, cervical region; D64.9 Anemia, unspecified; E03.9 Hypothyroidism, unspecified; F41.9 Anxiety disorder, unspecified; F70 Mild intellectual disabilities; J45.909 Unspecified asthma, uncomplicated; Z88.8 Allergy status to other drugs, medicaments and biological substances; Z80.3 Family history of malignant neoplasm of breast; Z79.890 Hormone replacement therapy; Z79.899 Other long term (current) drug therapy
CPT/HCPCS: 99285; 70450; 96360; 71045; 96361; 80076; 80048; 85025; 85730; 84484; 36415; 93005; 70486; 72125; 90715; 90471; J7040; A4663

== ENCOUNTER 2022-04-20 11:19 | Emergency (ER) | payer MEDICARE, OTHER ==
[~2022-04-20] VITALS: Ht 154.9 cm; Wt 72.6 kg
[~2022-04-20 11:19] MED LIST changes: +CEPH500C2 PO
--- NOTE | 2022-04-20 13:16 | NUR ---
DR Gonzalez at the bedside for MSE.
[2022-04-20] MEDS ORDERED: ACETAMINOPHEN 325 MG TABLET PO ONE (13:30)
[2022-04-20] MEDS ORDERED: ACETAMINOPHEN 325 MG TABLET ONE (14:12)
[2022-04-20 14:15] LABS: HEMATOCRIT 35.8 % (31.2-41.9); MEAN CORPUSCULAR HEMOGLOBIN 29.9 uug (24.7-32.8); PLATELET COUNT (AUTO) 195 K/uL (179-408)
[2022-04-20 14:27] LABS: CREATININE 1.1 mg/dL (0.6-1.3); POTASSIUM 4.5 mmol/L (3.5-5.1)
[2022-04-20 14:33] LABS: BILIRUBIN,TOTAL 0.3 mg/dL (0.2-1.0); TOTAL PROTEIN, SERUM 6.9 g/dL (6.4-8.2)
--- NOTE | 2022-04-20 16:04 | NUR ---
DCDE instructions provided to pt. who verbalized understanding. Pt. taken back to previous living place by the e learning manager of this facility. Walker provided as ordered.
[2022-04-20 17:29] LABS: NEUTROPHILS % (MANUAL) 0 % (42-75)
[2022-05-01] MEDS ORDERED: RISP2TAB5 PO (13:15)
[2022-05-01] MEDS ORDERED: PANT40TA49 PO (13:15)
[2022-05-01] MEDS ORDERED: ACID1TAB4 PO (13:15)
[2022-05-01] MEDS ORDERED: QUET300T2 PO (13:15)
[2022-05-01] MEDS ORDERED: QUET25TA PO (13:15)
[2022-05-01] MEDS ORDERED: CLON1PAT TD (13:15)
[2022-05-01] MEDS ORDERED: LEVO88TA5 PO (13:15)
[2022-05-01] MEDS ORDERED: CEFT1VIA15 IV (13:15)
[2022-05-01] MEDS ORDERED: RISP1TAB7 PO (13:15)
== END 2022-04-20 16:06 ==
LOC: ER 11:19
DX: M25.522 Pain in left elbow (principal); M25.561 Pain in right knee; R51.9 Headache, unspecified; W18.39XA Other fall on same level, initial encounter; Y92.199 Unspecified place in other specified residential institution as the place of occurrence of the external cause; F70 Mild intellectual disabilities; E03.9 Hypothyroidism, unspecified; Z79.890 Hormone replacement therapy; Z88.8 Allergy status to other drugs, medicaments and biological substances; J45.909 Unspecified asthma, uncomplicated; F29 Unspecified psychosis not due to a substance or known physiological condition
CPT/HCPCS: 36415; 70030-TC; 70450; 72125; 73080; 85025; A4663

== ENCOUNTER 2022-04-27 16:12 | Inpatient (IN) | payer MEDICARE, OTHER ==
[~2022-04-27] VITALS: Ht 154.9 cm; Wt 72.6 kg
[2022-04-27] MEDS ORDERED: IV NORMAL SALINE 1000 ML BAG IV ONE ×2 (16:45→19:00)
[2022-04-27 17:13] LABS: HEMATOCRIT 37.5 % (31.2-41.9); MEAN CORPUSCULAR HEMOGLOBIN 29.5 uug (24.7-32.8); MEAN CORPUSCULAR VOLUME 92.1 fL (75.5-95.3); PLATELET COUNT (AUTO) 192 K/uL (179-408)
[2022-04-27 17:23] LABS: CARBON DIOXIDE 31 mmol/L (21-32); CHLORIDE 99 mmol/L (98-107); CREATININE 1.1 mg/dL (0.6-1.3); GLUCOSE 113 mg/dL (74-106); POTASSIUM 4.5 mmol/L (3.5-5.1); UREA NITROGEN, BLOOD 26 mg/dL (7-18)
[2022-04-27 17:40] LABS: ALANINE AMINOTRANSFERASE 53 U/L (14-59); ALKALINE PHOSPHATASE 68 U/L (50-136); ASPARTATE AMINOTRANSFERASE 89 U/L (15-37); BILIRUBIN,TOTAL 0.4 mg/dL (0.2-1.0); CREATINE KINASE, TOTAL 1505 U/L (26-192); TOTAL PROTEIN, SERUM 7.5 g/dL (6.4-8.2)
[2022-04-27] MEDS ORDERED: RISPERIDONE 2 MG PO SCH (19:45)
[2022-04-27] MEDS: DOCUSATE SODIUM 100 MG CAPSULE PO SCH (21:00)
[2022-04-28] LABS: *BILIRUBIN,URIN 1+ (NEGATIVE); *BLOOD, URINE NEGATIVE (NEGATIVE); *CLARITY,URINE HAZY (CLEAR); *COLOR,URINE YELLOW (YELLOW); *KETONES,URINE 1+ (NEGATIVE); LEUKOCYTE ESTERASE ,URINE 1+ (NEGATIVE); NITRITE, URINE NEGATIVE (NEGATIVE); PH,URINE 6.5 (5.0-8.0); UGLUCOSE NEGATIVE (NEGATIVE)
[2022-04-28 00:02] LABS: BACTERIA,URINE FEW /HPF (NONE SEEN); SQUAMOUS EPITHELIAL CELL,UR FEW /HPF (NONE SEEN)
[2022-04-28 03:03] VITALS: BP 150/63
[2022-04-28] MEDS: PANTOPRAZOLE SODIUM 40 MG TABLET.DR PO SCH (06:35)
[2022-04-28] MEDS: REPAGLINIDE 1 MG TABLET PO SCH ×2 (07:30→17:11)
[2022-04-28] MEDS: LEVOTHYROXINE SODIUM 75 MCG TABLET PO SCH (07:44)
[2022-04-28 08:00] VITALS: BP 153/70
[2022-04-28] MEDS: CEFTRIAXONE 1 G in IV DEXTROSE 5% 50 ML IV SCH (08:00)
[2022-04-28 08:08] LABS: BILIRUBIN,TOTAL 0.5 mg/dL (0.2-1.0); CREATININE 0.8 mg/dL (0.6-1.3); PHOSPHOROUS 2.9 mg/dL (2.5-4.9); POTASSIUM 4.4 mmol/L (3.5-5.1); TOTAL PROTEIN, SERUM 5.8 g/dL (6.4-8.2)
[2022-04-28] MEDS: DIVALPROEX 500 MG TABLET.DR PO SCH ×2 (09:00→17:11)
[2022-04-28] MEDS: MELOXICAM 7.5 MG TABLET PO SCH (09:00)
[2022-04-28] MEDS: BETA CAROTENE/VIT C & E/MIN TABLET PO SCH (09:00)
[2022-04-28] MEDS ORDERED: Medication Not On Formulary EA (Lutein 20 MG) PO SCH (09:00)
[2022-04-28] MEDS: FLUOXETINE HCL 20 MG CAPSULE PO SCH (09:00)
[2022-04-28] MEDS ORDERED: REPAGLINIDE 1 MG TABLET PO SCH (09:00)
[2022-04-28] MEDS: DOCUSATE SODIUM 100 MG CAPSULE PO SCH ×3 (09:00→20:25)
[2022-04-28] MEDS: CHOLECALCIFEROL 1,000 UNIT TABLET PO SCH (09:00)
[2022-04-28] MEDS: BENZTROPINE MESYLATE 1 MG TABLET PO SCH ×2 (09:00→17:11)
[2022-04-28 09:08] LABS: THYROID STIMULATING HORMONE 10.247 mIU/mL (0.358-3.740)
[2022-04-28 11:18] LABS: HEMATOCRIT 32.5 % (31.2-41.9); MEAN CORPUSCULAR HEMOGLOBIN 29.6 uug (24.7-32.8); MEAN CORPUSCULAR VOLUME 92.4 fL (75.5-95.3); PLATELET COUNT (AUTO) 202 K/uL (179-408)
[2022-04-28 12:00] VITALS: BP 146/69
[2022-04-28 16:00] VITALS: BP 152/45
[2022-04-28] MEDS ORDERED: VIT1CAPS44 PO (16:15)
[2022-04-28] MEDS ORDERED: RISP4TAB70 PO (16:17)
[2022-04-28] MEDS: QUETIAPINE FUMARATE 200 MG TABLET PO SCH (17:15)
[2022-04-28] MEDS: risperiDONE 2 MG TABLET PO SCH (20:25)
[2022-04-28 20:34] VITALS: BP 144/86
[2022-04-29 00:34] VITALS: BP 150/68
[2022-04-29 04:36] VITALS: BP 159/81
[2022-04-29] MEDS: IV 1/2NS 1000 ML 1,000 ML IV PRN ×2 (05:29→21:53)
[2022-04-29] MEDS: LEVOTHYROXINE SODIUM 75 MCG TABLET PO SCH (06:04)
[2022-04-29] MEDS: PANTOPRAZOLE SODIUM 40 MG TABLET.DR PO SCH (06:04)
[2022-04-29] MEDS: REPAGLINIDE 1 MG TABLET PO SCH ×2 (07:30→16:30)
[2022-04-29 07:34] LABS: CREATININE 0.8 mg/dL (0.6-1.3); MAGNESIUM 1.9 mg/dL (1.8-2.4); PHOSPHOROUS 2.7 mg/dL (2.5-4.9); POTASSIUM 4.6 mmol/L (3.5-5.1)
[2022-04-29 08:00] VITALS: BP 156/71
[2022-04-29] MEDS: CEFTRIAXONE 1 G in IV DEXTROSE 5% 50 ML IV SCH (08:00)
[2022-04-29 08:32] LABS: HEMATOCRIT 31.2 % (31.2-41.9); MEAN CORPUSCULAR HEMOGLOBIN 29.9 uug (24.7-32.8); PLATELET COUNT (AUTO) 233 K/uL (179-408)
[2022-04-29] MEDS: MELOXICAM 7.5 MG TABLET PO SCH (09:00)
[2022-04-29] MEDS: DOCUSATE SODIUM 100 MG CAPSULE PO SCH ×4 (09:00→21:35)
[2022-04-29] MEDS: CHOLECALCIFEROL 1,000 UNIT TABLET PO SCH (10:23)
[2022-04-29] MEDS: BETA CAROTENE/VIT C & E/MIN TABLET PO SCH (10:23)
[2022-04-29] MEDS: BENZTROPINE MESYLATE 1 MG TABLET PO SCH ×2 (10:23→17:48)
[2022-04-29] MEDS: risperiDONE 2 MG TABLET PO SCH ×2 (10:23→21:36)
[2022-04-29] MEDS: DIVALPROEX 500 MG TABLET.DR PO SCH ×2 (10:24→17:49)
[2022-04-29] MEDS: FLUOXETINE HCL 20 MG CAPSULE PO SCH (10:24)
[2022-04-29 11:52] VITALS: BP 147/81
[2022-04-29 15:56] VITALS: BP 160/84
[2022-04-29] MEDS: QUETIAPINE FUMARATE 200 MG TABLET PO SCH (17:49)
[2022-04-29 20:27] VITALS: BP 163/85
[2022-04-30 00:52] VITALS: BP 164/83
[2022-04-30 04:36] VITALS: BP 169/74
[2022-04-30] MEDS: PANTOPRAZOLE SODIUM 40 MG TABLET.DR PO SCH (07:03)
[2022-04-30] MEDS: LEVOTHYROXINE SODIUM 75 MCG TABLET PO SCH (07:03)
[2022-04-30] MEDS: CEFTRIAXONE 1 G in IV DEXTROSE 5% 50 ML IV SCH (08:25)
[2022-04-30] MEDS: REPAGLINIDE 1 MG TABLET PO SCH ×2 (08:25→17:21)
[2022-04-30] MEDS: risperiDONE 2 MG TABLET PO SCH ×2 (08:28→21:00)
[2022-04-30] MEDS: BENZTROPINE MESYLATE 1 MG TABLET PO SCH ×2 (08:28→17:21)
[2022-04-30] MEDS: DIVALPROEX 500 MG TABLET.DR PO SCH ×2 (08:28→17:20)
[2022-04-30] MEDS: MELOXICAM 7.5 MG TABLET PO SCH (08:28)
[2022-04-30] MEDS: FLUOXETINE HCL 20 MG CAPSULE PO SCH (08:28)
[2022-04-30] MEDS: DOCUSATE SODIUM 100 MG CAPSULE PO SCH ×2 (08:28→17:21)
[2022-04-30] MEDS: BETA CAROTENE/VIT C & E/MIN TABLET PO SCH (08:28)
[2022-04-30] MEDS: CHOLECALCIFEROL 1,000 UNIT TABLET PO SCH (08:29)
[2022-04-30] MEDS ORDERED: CLONIDINE-TTS 1 PATCH TD SCH (11:00)
[2022-04-30 11:49] VITALS: BP 164/65
[2022-04-30] MEDS: IV 1/2NS 1000 ML 1,000 ML IV PRN (14:50)
[2022-04-30 16:03] VITALS: BP 128/78
[2022-04-30] MEDS: QUETIAPINE FUMARATE 200 MG TABLET PO SCH (17:21)
[2022-04-30 20:40] VITALS: BP 128/66
[2022-05-01 00:15] VITALS: BP 126/60
[2022-05-01] MEDS: IV 1/2NS 1000 ML 1,000 ML IV PRN (01:37)
[2022-05-01 04:02] VITALS: BP 145/71
[2022-05-01] MEDS: LEVOTHYROXINE SODIUM 75 MCG TABLET PO SCH (06:58)
[2022-05-01] MEDS: PANTOPRAZOLE SODIUM 40 MG TABLET.DR PO SCH (06:58)
[2022-05-01 07:15] LABS: BILIRUBIN,TOTAL 0.6 mg/dL (0.2-1.0); CREATININE 0.7 mg/dL (0.6-1.3); MAGNESIUM 1.8 mg/dL (1.8-2.4); PHOSPHOROUS 4.2 mg/dL (2.5-4.9); POTASSIUM 4.2 mmol/L (3.5-5.1); TOTAL PROTEIN, SERUM 5.6 g/dL (6.4-8.2)
[2022-05-01 08:04] LABS: HEMATOCRIT 31.2 % (31.2-41.9); MEAN CORPUSCULAR VOLUME 90.5 fL (75.5-95.3); PLATELET COUNT (AUTO) 321 K/uL (179-408)
[2022-05-01] MEDS: risperiDONE 2 MG TABLET PO SCH (09:32)
[2022-05-01] MEDS: DIVALPROEX 500 MG TABLET.DR PO SCH (09:32)
[2022-05-01] MEDS: MELOXICAM 7.5 MG TABLET PO SCH (09:32)
[2022-05-01] MEDS: BETA CAROTENE/VIT C & E/MIN TABLET PO SCH (09:32)
[2022-05-01] MEDS: CHOLECALCIFEROL 1,000 UNIT TABLET PO SCH (09:32)
[2022-05-01] MEDS: FLUOXETINE HCL 20 MG CAPSULE PO SCH (09:32)
[2022-05-01] MEDS: DOCUSATE SODIUM 100 MG CAPSULE PO SCH (09:32)
[2022-05-01] MEDS: BENZTROPINE MESYLATE 1 MG TABLET PO SCH (09:32)
[2022-05-01] MEDS: CEFTRIAXONE 1 G in IV DEXTROSE 5% 50 ML IV SCH (09:34)
[2022-05-01] MEDS: REPAGLINIDE 1 MG TABLET PO SCH (09:36)
[2022-05-01 11:25] VITALS: BP 126/73
[2022-05-01] MEDS ORDERED: CLON1PAT TD (13:15)
[2022-05-01] MEDS ORDERED: QUET300T2 PO (13:15)
[2022-05-01] MEDS ORDERED: CEFT1VIA15 IV (13:15)
[2022-05-01] MEDS ORDERED: PANT40TA49 PO (13:15)
[2022-05-01] MEDS ORDERED: RISP2TAB5 PO (13:15)
[2022-05-01] MEDS ORDERED: QUET25TA PO (13:15)
[2022-05-01] MEDS ORDERED: LEVO88TA5 PO (13:15)
[2022-05-01] MEDS ORDERED: ACID1TAB4 PO (13:15)
[2022-05-01] MEDS ORDERED: RISP1TAB7 PO (13:15)
[2022-05-01 14:28] VITALS: BP 156/72
[2022-05-01 23:32] LABS: BAND % (MANUAL) 1 % (0-10); EOSINOPHILS % (MANUAL) 6 % (0-8); LYMPHOCYTES % (MANUAL) 36 % (20-40); MONOCYTES % (MANUAL) 11 % (2-10); MYELOCYTES % 3 % (0-0); NEUTROPHILS % (MANUAL) 43 % (42-75)
== END 2022-05-01 16:25 | disposition home health service (06) | DRG 872 ==
LOC: ER 16:12 → TELE3 18:40 → MEDSURG3 05-01 09:10
PROVIDERS: ADMIT Internal Medicine; ATTEND Internal Medicine
PROC: 05H933Z Insertion of Infusion Device into Right Brachial Vein, Percutaneous Approach (ICD-10-PCS; principal; 2022-04-28)
DX: A41.9 Sepsis, unspecified organism (principal); N39.0 Urinary tract infection, site not specified; M62.82 Rhabdomyolysis; D68.59 Other primary thrombophilia; W18.30XA Fall on same level, unspecified, initial encounter; Y92.042 Bedroom in boarding-house as the place of occurrence of the external cause; F25.9 Schizoaffective disorder, unspecified; Z20.822 Contact with and (suspected) exposure to COVID-19; J45.909 Unspecified asthma, uncomplicated; E03.9 Hypothyroidism, unspecified; F41.9 Anxiety disorder, unspecified; F70 Mild intellectual disabilities; E11.9 Type 2 diabetes mellitus without complications; K59.00 Constipation, unspecified; R26.9 Unspecified abnormalities of gait and mobility; Z88.8 Allergy status to other drugs, medicaments and biological substances; Z98.890 Other specified postprocedural states; Z80.3 Family history of malignant neoplasm of breast; Z79.899 Other long term (current) drug therapy; Z74.09 Other reduced mobility; E66.9 Obesity, unspecified; I25.10 Atherosclerotic heart disease of native coronary artery without angina pectoris; Z86.16 Personal history of COVID-19; R62.50 Unspecified lack of expected normal physiological development in childhood; F32.A Depression, unspecified; N32.81 Overactive bladder; M19.90 Unspecified osteoarthritis, unspecified site; R79.89 Other specified abnormal findings of blood chemistry; Z68.30 Body mass index [BMI] 30.0-30.9, adult; B96.20 Unspecified Escherichia coli [E. coli] as the cause of diseases classified elsewhere; I95.1 Orthostatic hypotension; I35.8 Other nonrheumatic aortic valve disorders; Z87.09 Personal history of other diseases of the respiratory system
CPT/HCPCS: 36415; 70030-TC; 71045; 80164; 83605; 83735; 84100; 84443; 84484; 85025; 87040; 93005; 93307; A4663; A6209; G0378; J0696; J7040